=== PATIENT | female | born 1980 | race Caucasian/White ===

== ENCOUNTER 2018-09-30 08:55 | Outpatient (CLI) | payer MEDICAID, SELFPAY ==
[2018-09-30 11:21] LABS: Abs Immature Grans 0.01 k/cumm (0.0-0.09); Absolute Basophil Count 0.01 k/cumm (0.0-0.2); Absolute Eosinophil Count 0.02 k/cumm (0.0-0.7); Absolute Lymphocyte Count 1.17 k/cumm (1.2-3.4); Absolute Monocyte Count 0.59 k/cumm (0.11-0.7); Absolute Neutrophil Count 6.68 k/cumm (1.2-6.7); Basophils % 0.1; Eosinophils % 0.2; HCT 47.1 % (36.0-46.0); HGB 15.9 g/dL (12.0-15.5); Immature Grans % 0.1; Lymphocytes % 13.8; Mean Corp. HGB Concentration 33.8 g/dL (32.0-36.0); Mean Corpuscular Hemoglobin 30.7 pg (27.0-33.0); Mean Corpuscular Volume 90.9 fL (80-95); Mean Platelet Volume 9.4 fL (8.0-11.0); Neutrophils % 78.8; Platelet Count 250 x1000/uL (130-400); RBC 5.18 m/cumm (4.00-5.20); RBC Distribution Width 13.1 % (11.7-14.6); White Blood Cell Count 8.48 k/cumm (4.4-10.8)
[2018-09-30 11:42] LABS: ALT 38 U/L (12-78); AST 18 U/L (15-37); Albumin 4.1 g/dL (3.4-5.0); Alkaline Phosphatase 46 U/L (46-116); Anion Gap 8.9 mmol/L (3-11); BUN 7 mg/dL (7-18); Bilirubin, Total 0.5 mg/dL (0.2-1.0); CO2 28.1 mmol/L (21.0-32.0); Calcium 8.9 mg/dL (8.5-10.1); Chloride 102 mmol/L (98-107); Glucose 79 mg/dL (70-100); Sodium 139 mmol/L (136-145); TSH 1.65 uIU/mL (0.358-3.74); Total Protein 6.9 g/dL (6.4-8.2)
[2018-09-30 12:22] LABS: Vitamin B12 446 pg/mL (193-986)
== END 2018-09-30 09:15 ==
PROVIDERS: PCP Family Medicine; Visit Provider Family Medicine
DX: R53.82 Chronic fatigue, unspecified (principal); K58.0 Irritable bowel syndrome with diarrhea; R10.30 Lower abdominal pain, unspecified
CPT/HCPCS: 36415; 80053; 82607; 84443; 85025

== ENCOUNTER 2019-03-16 10:23 | Outpatient (CLI) | payer MEDICAID, SELFPAY ==
--- NOTE | 2019-03-16 10:19 | DI.RAD_ITS ---
SYMPTOMS/DIAGNOSIS: RIGHT WRIST PAIN RIGHT WRIST: There is some soft tissue swelling. No bony or joint abnormality is apparent.
== END 2019-03-16 10:43 ==
PROVIDERS: PCP Family Medicine; Visit Provider Physician Assistant
DX: M25.531 Pain in right wrist (principal); M79.89 Other specified soft tissue disorders
CPT/HCPCS: 73110

== ENCOUNTER 2020-08-14 04:46 | Emergency (ER) | payer MEDICAID, SELFPAY ==
--- NOTE | 2020-08-14 04:45 | DI.RAD_ITS ---
EXAM: XR ANKLE RT COMPLETE CLINICAL HISTORY: pain for 3 days TECHNIQUE: COMPARISON: No exams were available for comparison FINDINGS: Three views were obtained. The ankle mortise appears well maintained. No bony or soft tissue abnorm ality seen. IMPRESSION: RADIATION DOSE DELIVERED: Total DLP
[2020-08-14 04:51] VITALS: BP 143/85; PULSE 94; RESP 16; TEMP 37.2; O2SAT 99
--- NOTE | 2020-08-14 04:59 | W.ED.GENAD ---
Discharge Plan Disposition Patient Disposition: HOME Condition: Stable Discharge Details Clinical Impression: Acute right ankle pain Primary Care Provider: Liam Bell ED Provider: Cla Person Home Meds and New Rx's Prescriptions: New prednisone 20 mg tablet 60 mg PO DAILY 4 Days Qty: 12 RF: 0 Continued fluoxetine 20 mg capsule 20 mg PO DAILY Qty: 90 RF: 4 gabapentin 100 mg capsule 100 mg PO QHS Qty: 30 RF: 2 lorazepam 0.5 mg tablet 0.5 mg PO BID PRN (Reason: anxiety) Qty: 20 RF: 0 cyclobenzaprine 10 mg tablet 10 mg PO TID Qty: 30 RF: 2 Discharge Instructions Additional Instructions: Your xray did not show any concerning findings follow up with your primary care provider or orthopedics if pain continues in a week if you develop fevers, spreading redness or severe worsening pain return to the emergency department Medical Decision Making 39 yo female with hx of ibs who runs frequently comes in with 3 days of right ankle pain along the anterior ankle. Denies falls fevers, chills. She is able to bear weight and has full rom, no swelling, no warmth, no redness. normal sensation. HAs pain with palpation to the anterior right ankle, 2+ pulses and no pain over metatarsals. Denies any known injury. Suspect this could be stress injury vs tendonitis and less likely gout. No findings to suggest septic joint at this time and no effusion on exam. Will xray to eval for fx though unlikely given lack of trauma xray unremkarkable and is walking around without any significant limp and still has normal motor and sensatino. Suspect arthritis vs tendonitis vs stress related from running. Will trial prednisone and advised f/u with pcp or ortho in a week if not improving and return precautions given Differential Diagnosis Differential Diagnosis: gout, tendonitis, bursitis, arthritis, stress injury, sprain Imaging Data Radiologic Study: Attestation: I personally reviewed and interpreted this imaging study as follows: Imaging: X-Ray Radiologist's impression: no acute findings HPI General Mode of arrival: ambulatory. Date/Time Provider Initiated Documentation: 08/14/20 04:47. Limitations to Documentation: no limitations. Information obtained by: patient. History of Present Illness 39 year old F presents to the emergency department with the chief complaint of right ankle pain, described as moderate, Patient started experiencing this day(s) (3) and it has been constant. Rest improves symptom(s), Movement worsens symptoms . Patient did receive the following treatments prior to arrival, none Related Data Home Medications Medication Instructions Recorded Confirmed gabapentin 100 mg capsule 100 mg PO QHS #30 cap 07/06/20 08/14/20 fluoxetine 20 mg capsule 20 mg PO DAILY #90 cap 07/20/20 08/14/20 lorazepam 0.5 mg tablet 0.5 mg PO BID PRN #20 tab 08/01/20 08/14/20 cyclobenzaprine 10 mg tablet 10 mg PO TID #30 tab 08/03/20 08/14/20 prednisone 60 mg PO DAILY 4 Days #12 tab 08/14/20 Previous Rx's Medication Instructions Recorded gabapentin 100 mg capsule 100 mg PO QHS #30 cap 07/06/20 fluoxetine 20 mg capsule 20 mg PO DAILY #90 cap 07/20/20 lorazepam 0.5 mg tablet 0.5 mg PO BID PRN #20 tab 08/01/20 cyclobenzaprine 10 mg tablet 10 mg PO TID #30 tab 08/03/20 prednisone 60 mg PO DAILY 4 Days #12 tab 08/14/20 Allergies Allergy/AdvReac Type Severity Reaction Status Date / Time Penicillins Allergy Severe Anaphylaxis Verified 08/14/20 04:55 Sulfa (Sulfonamide Allergy Intermediate Rash Verified 08/14/20 04:55 Antibiotics) General Stated Complaint: Orthopedic BRONSON: 4 Review of Systems All systems reviewed & are unremarkable except as noted in HPI and below Constitutional Constitutional: Denies chills, Denies fever(s) and Denies weakness Cardiovascular Cardiovascular: Denies chest pain and Denies dyspnea Respiratory Respiratory: Denies cough and Denies dyspnea Gastrointestinal Gastrointestinal: Denies abdominal pain, Denies nausea and Denies vomiting Musculoskeletal Musculoskeletal: Denies joint swelling Neurologic Neurologic: Denies weakness Psychiatric Psychiatric: Denies depression [facility] Medical History (Updated 08/14/20 @ 05:05 by Cal Person MD) Chronic pain syndrome Tapering to zero on opiates Ganglion cyst Right wrist Aspirated: 03/16/19 Surgical History (Updated 05/17/19 @ 08:45 by Juan Dumont MD) Status post tonsillectomy Tonsillectomy 05/18/12; [facility] Social History (Updated 09/29/18 @ 09:27 by Marian Knowles) Smoking/Tobacco Use Status: Current-Occasional Alcohol Intake: never Drug use: Never Substance use type: does not use Kathia/Latter-Day: No preference Special kathia needs: No Do you feel safe at home: Yes Do you feel safe in your relationship?: Yes Exam Const General: no acute distress Orientation: alert HENMT Head: normal to inspection Ears: external ears normal General nose exam: external nose normal Mouth: moist mucous membranes Eyes General: appearance normal, both eyes and all related structures Neck Neck: normal visual inspection Resp Effort & Inspection: normal respiratory effort and able to speak in complete sentences Cardio Rate: regular rate Skin General skin exam: no rashes or lesions noted Neuro General: patient alert and patient oriented x3 Extrem General: normal to inspection, full ROM and capillary refill normal Psych Mental Status: mental status grossly normal Course Vital Signs Vital signs: Vital Signs Temperature 37.2 C 08/14/20 04:51 Pulse 94 H 08/14/20 04:51 Respiratory Rate 16 08/14/20 04:51 Blood Pressure 143/85 H 08/14/20 04:51 Pulse Oximetry 99 08/14/20 04:51 Temperature 37.2 C 08/14/20 04:51 Temperature Source Skin 08/14/20 04:51 Pulse 94 H 08/14/20 04:51 Respiratory Rate 16 08/14/20 04:51 Respiratory Effort Non-Labored 08/14/20 04:51 Blood Pressure 143/85 H 08/14/20 04:51 Blood Pressure Position Sitting 08/14/20 04:51 Pulse Oximetry 99 08/14/20 04:51 Oxygen Delivery Method Room Air 08/14/20 04:51 Oxygen Flow Rate 0 08/14/20 04:51 Pain Level 3 08/14/20 04:51
[2020-08-14] MEDS: Acetaminophen 500 MG TAB 1000 MG PO (05:05)
--- NOTE | 2020-08-14 05:22 | DI.VRAD_ITS ---
PROCEDURE INFORMATION: Exam: XR Right Ankle Exam date and time: 08/14/2020 5:11 AM Age: 39 years old Clinical indication: Right; Patient HX: Ankle pain for 3 days no known trauma TECHNIQUE: Imaging protocol: XR Right ankle. Views: 3 or more views. COMPARISON: CR RIGHT HEEL (OS CALCIS) 07/13/2014 10:01 AM FINDINGS: Bones/joints: Normal. Soft tissues: Normal. IMPRESSION: No acute findings. Dictated and Authenticated by: Sandor Brooks MD. Ordering:JULIA Mccall MD
[2020-08-14 05:27] VITALS: BP 143/85; PULSE 94; RESP 16; TEMP 37.2; O2SAT 99
== END 2020-08-14 05:25 | disposition home or self-care (01) ==
PROVIDERS: Emergency Provider Emergency Medicine; PCP Family Medicine
DX: M25.571 Pain in right ankle and joints of right foot (principal)
CPT/HCPCS: 99283; 73610

== ENCOUNTER 2020-09-04 11:34 | Outpatient (CLI) | payer MEDICAID, SELFPAY ==
[2020-09-06 13:49] LABS: Patient Race White; SARS-CoV-2 RNA Undetected (Undetected); SARS-CoV-2 Specimen Source Nasopharynx
== END 2020-09-04 11:54 ==
PROVIDERS: PCP Family Medicine; Visit Provider Family Medicine
DX: R50.9 Fever, unspecified (principal)
CPT/HCPCS: U0003

== ENCOUNTER 2022-08-22 00:54 | Outpatient (CLI) | payer MEDICAID, SELFPAY ==
--- OUTSIDE RECORDS SUMMARY | 2022-08-22 01:30 | XMS_ITS | Encounter Summary ---
:1980 Author Organization [facility] Address [address] [place] [address] Care Team Providers Name Role Phone Juan Dumont MD Primary Care Provider Unavailable Encounter Details Date Type Department Care Team Description 11/03/2016 Orders Only [facility] Shanita Vance RNdepot agent - [facility] [address] [place] [address] Social History Tobacco Use Types Packs/Day Years Used Date Current Some Day Smoker Smokeless Tobacco: Never Used Alcohol Use Standard Drinks/Week Comments No 0 (1 standard drink = 0.6 oz pure alcoho l) Sex Assigned at Date Recorded Not on file documented as of this encounter Functional Status Functional Status Response Date of Assessment Because of a physical, mental, or emotional condition, No 02/28/2016 does this person have difficulty doing errands alone such as visiting a doctor's office or shopping? Cognitive Status Response Date of Assessment Because of a physical, mental, or emotional condition, No 02/28/2016 does this person have serious difficulty concentrating, remembering, or making decisions? documented as of this encounter Plan of Treatment Not on filedocumented as of this encounter Visit Diagnoses Not on filedocumented in this encounter Care Teams Pipeline Construction Inspector Relationship Specialty Start Date End Date Juan Dumont MD PCP - General 05/17/15 documented as of this encounter
--- OUTSIDE RECORDS SUMMARY | 2022-08-22 01:30 | XMS_ITS | Encounter Summary ---
:1980 Author Organization [facility] Address [address] [place] [address] Care Team Providers Name Role Phone Brian Nolen MD Primary Care Provider Unavailable Encounter Details Date Type Department Care Team Description 09/23/2011 Results Only [facility]- [facility]ISM Victoria Edwards, TREATING ENGINEER HELPER [phone],[place], [place] [address] (Wo rk) Social History Tobacco Use Types Packs/Day Years Used Date Never Assessed Sex Assigned at Date Recorded Not on file documented as of this encounter Plan of Treatment Not on filedocumented as of this encounter Procedures Procedure Name Priority Date/Time Associated Diagnosis Comme nts PAP TEST- RESULT Routine 09/23/2011 0:00 EDT Resu lts for this ONLY procedure are i n the results section. documented in this encounter Results PAP TEST- RESULT ONLY (09/23/2011 0:00 EDT) Pathology Report: CYTOPATHOLOGY REPORT [facility] Reports generated via electronic interface contain kaleb ginal data; however they are lacking the format of the original re port. Caution should be taken when reading/interpreting unfo rmatted reports. Name: ? JAZZY BESS ? Accession #: ? [id number] : ? 1980 (Age: 30) ??F ?Collect Date: ? 08/31 Location: ? [facility] ? Receive Date : ? 09/24/2011 Provider: ?VICTORIA EDWARDS TREATING ENGINEER HELPER Copy to: ? Specimen/Source: ? Pap Test, Cervix/Endocervix, ThinPrep Imaging System with manual evaluation Last Menstrual Period: ? Hormonal/Contraceptive Status: ? Control Pills: mini pill ? SPECIMEN ADEQUACY ? Satisfactory for Evaluation - transformation zone component present GENERAL CATEGORIZATION ? Negative for Intraepithelial Lesion or Malignan cy ? Document reviewed and electronically signed by: ? MARYAM Kahn(ASCP)(IAC) ? Report Date: ??10/03/2011 11:00 End of Report Specimen Performing Organization Address City/State/ZIP Code Phon e Number [facility] [address] [place] [address] SERVICES [facility] [address] [place] [address] documented in this encounter Visit Diagnoses Not on filedocumented in this encounter Care Teams Turbo Operator Relationship Specialty Start Date End Date Brian Nolen MD PCP - General 09/25/1105/16 documented as of this encounter
--- OUTSIDE RECORDS SUMMARY | 2022-08-22 01:30 | XMS_ITS | Encounter Summary ---
:1980 Author Organization [facility] Address [address] [place] [address] Care Team Providers Name Role Phone Juan Dumont MD Primary Care Provider Unavailable Encounter Details Date Type Department Care Team Description 11/03/2016 Orders Only [facility] Shanita Vance Weight lo ss (Primary Gastroenterology - Main RN Dx) [place] [address] [place] [phone] Social History Tobacco Use Types Packs/Day Years [...] making decisions? documented as of this encounter Progress Notes Shanita Vance RN - 11/03/2016 1428 EST Capsule Endoscopy scheduled for 11/26/16. Instructions given to patient over the phone and mailed. documented in this encounter Plan of Treatment Scheduled Orders Name Type Priority Associated Diagnoses Order S chedule CAPSULE ENDOSCOPY GI Routine Weight loss Ordered: 1 01/04/2016 documented as of this encounter Visit Diagnoses Diagnosis Weight loss - Primary Loss of weight documented in this encounter Care Teams Dust Sampler Relationship Specialty Start Date End Date Juan Dumont MD PCP - General 05/17/15 documented as of this encounter
--- OUTSIDE RECORDS SUMMARY | 2022-08-22 01:30 | XMS_ITS | Encounter Summary ---
:1980 Author Organization [facility] Address [address] [place] [address] Care Team Providers Name Role Phone Unavailable Primary Care Provider Unavailable Encounter Details Date Type Department Care Team Description 11/21/2008 Before [facility] - Ale Pop, Converted Visit Maple conversion RESEARCH AFFILIATE (Maple) [address] [place] [address] [address] [phone] [place], [place] [address] (Wo rk) Social History Tobacco Use Types Packs/Day Years Used Date Never Assessed Sex Assigned at Date Recorded Not on file documented as of this encounter Plan of Treatment Not on filedocumented as of this encounter Procedures Procedure Name Priority Date/Time Associated Diagnosis Comme [facility] CYTOPATHOLOGY Routine 11/21/2008 0:00 EST Results for this procedure are i n the results section . documented in this encounter Results CYTOPATHOLOGY (11/21/2008 0:00 EST) Pathology Report: CYTOPATHOLOGY REPORT ? [facility] Reports generated via electr onic interface contain original data; ? however they are lacking the format of the original report. ? Caution should be taken when reading/interpreting unformatted reports. ? Name: ? SHANTEL BARBOSA ? Accession #: ? [id number] ? : ? 1980 (Age: 28) ??F ?Collect Date: ? 11/21/2008 ? Location: ? [facility] ? Receive Date: ? 11/24/2008 ? Provider: ?ALE NUNO ? Copy to: ? Specimen/Source: ? Pap Test, Cervix/Endocervix, ThinPrep Imaging System ? with manual evaluation ? Last Menstrual Period: ? 09/30/08 ? Menstrual/ Status: ? Previous Gynecologic Patholo gy: ? HPV: Pt has hx HR HPV + ? Treatment History: ? LEEP: Procedure 05/07 ? Other: ? HPVA - HPV testing requested if ASC-US on the current ThinPrep Pap test. ? SPECIMEN ADEQUACY ? Satisfactory for Eval uation ? - transformation zone compon ent present ? GENERAL CATEGORIZATION ? Negative for Intraepi thelial Lesion or Malignancy ? Document reviewed and electr onically signed by: ? Jesús Almitaler, CT( CP) ? Report Date: ??12/31/ 2008 11:38 ? End of Report ? Specimen Performing Organization Address City/State/ZIP Code Phon e Number [facility] [address] [place] [address] SERVICES [facility] [address] [place] [address] documented in this encounter Visit Diagnoses Not on filedocumented in this encounter
--- OUTSIDE RECORDS SUMMARY | 2022-08-22 01:30 | XMS_ITS | Clinical Summary ---
:1980 Author Organization [facility] Address [address] [place] [address] Care Team Providers Name Role Phone Juan Dumont MD Primary Care Provider Unavailable Allergies Active Allergy Reactions Severity Noted Date Comments Penicillins Anaphylaxis High 02/28/2016 Sulfa (Sulfonamide Antibiotics) 6 Medications Medication Sig Dispensed Refills Start Date End Date Status oxyCODONE (ROXICODONE) Take 5 mg by mouth 0 Active 5 mg immediate release as needed for tablet Pain. polyethylene glycol Follow 1 Bottle 0 08/29/2016 Active (GOLYTELY) instructions on 236-22.74-6.74 -5.86 'colonoscopy gram suspension preparation instructions' sheet. levonorgestrel 1 Each by 0 Activ e (MIRENA) 20 mcg/24 hr intrauterine route (5 years) IUD once. cyclobenzaprine Take 10 mg by 0 Active (FLEXERIL) 10 mg mouth 3 times tablet daily. Active Problems No known active problems Surgical History Surgery Date Site/Laterality Comments BREAST LUMPECTOMY TONSILLECTOMY Medical History Medical History Date Comments Diarrhea Environmental allergies Heart murmur Kidney stones Colon polyp Family History Medical History Relation Name Comments Cancer Father High Blood Pressure Father Cancer Maternal Aunt High Blood Pressure Maternal Aunt Cancer Maternal Grandfather Cancer Maternal Grandmother High Blood Pressure Mother Cancer Paternal Aunt High Blood Pressure Paternal Aunt Cancer Paternal Grandfather Cancer Paternal Grandmother High Blood Pressure Paternal Grandmother Relation Name Status Comments Father Alive Maternal Aunt Maternal Grandfather Maternal Grandmother Mother Alive Paternal Aunt Paternal Grandfather Paternal Grandmother Social History Tobacco Use Types Packs/Day Years Used Date Current Some Day Smoker Smokeless Tobacco: Never Used Alcohol Use Standard Drinks/Week Comments No 0 (1 standard drink = 0.6 oz pure alcoho l) Sex Assigned at Date Recorded Not on file Last Filed Vital Signs Vital Sign Reading Time Taken Comments Blood Pressure 114/76 09/08/2016 1521 EDT Pulse 84 02/28/2016 1118 EDT Temperature 36.7 ??C (98.1 ??F) 09/08/2016 1335 EDT Respiratory Rate 22 09/08/2016 1500 EDT Oxygen Saturation 100% 09/08/2016 1521 EDT Inhaled Oxygen Concentration - - Weight 47.6 kg (105 lb) 09/08/2016 1336 EDT Height 154.9 cm (5' 1) 09/08/2016 1336 EDT Body Mass Index 19.84 09/08/2016 1336 EDT Plan of Treatment Health Maintenance Due Date Last Done Comments Pneumococcal Immunization (1 of 2 - PPSV23) 1986 Insurance Payer Benefit Plan Subscriber ID Effective Phone Address Typ e / Group Dates MEDICAID ACO MEDICAID ACO [id number] 2020-Pres [phone] [address] Medicaid [place] [address] [facility] [id number] Care Teams Mold Shifter Relationship Specialty Start Date End Date Juan Dumont MD PCP - General 05/17/15
--- OUTSIDE RECORDS SUMMARY | 2022-08-22 01:30 | XMS_ITS | Encounter Summary ---
:1980 Author Organization [facility] Address [address] [place] [address] Care Team Providers Name Role Phone Unavailable Primary Care Provider Unavailable Encounter Details Date Type Department Care Team Description 12/15/2003 Results Only [facility] Vale Tanner [address] [place] [phone] Social History Tobacco Use Types Packs/Day Years Used Date Never Assessed Sex Assigned at Date Recorded Not on file documented as of this encounter Plan of Treatment Not on filedocumented as of this encounter Procedures Procedure Name Priority Date/Time Associated Diagnosis Comme nts GROUP A STREP Routine 12/15/2003 10:18 Results fo r this CULTURE EST procedure are i n the results section. documented in this encounter Results PHARYNGITIS CULTURE (12/15/2003 10:18 EST) Specimen Throat [facility] Result NO GROUP A BETA [facility] Report Status Final [id number] [facility] Specimen Performing Organization Address City/State/ZIP Code Phon e Number [facility] [address] [place] [address] SERVICES [facility] [address] [place] [address] documented in this encounter Visit Diagnoses Not on filedocumented in this encounter
--- OUTSIDE RECORDS SUMMARY | 2022-08-22 01:30 | XMS_ITS | Encounter Summary ---
:1980 Author Organization [facility] Address [address] [place] [address] Care Team Providers Name Role Phone Brian Nolen MD Primary Care Provider Unavailable Encounter Details Date Type Department Care Team Description 05/15/2015 Hospital Encounter [facility]- Sarah Unknown, Provider, [facility] [address] [facility] [phone] [place] [address] (Work) [phone] Social History Tobacco Use Types Packs/Day Years Used Date Never Assessed Sex Assigned at Date Recorded Not on file documented as of this encounter Discharge Disposition Disposition Code Departure Means Destination Home or Self [place] documented in this encounter Plan of Treatment Not on filedocumented as of this encounter Visit Diagnoses Not on filedocumented in this encounter Care Teams Robot Operator Relationship Specialty Start Date End Date Brian Nolen MD PCP - General 09/25/1105/16 documented as of this encounter
--- OUTSIDE RECORDS SUMMARY | 2022-08-22 01:30 | XMS_ITS | Encounter Summary ---
:1980 Author Organization [facility] Address [address] [place] [address] Care Team Providers Name Role Phone Juan Dumont MD Primary Care Provider Unavailable Reason for Referral Consult, Test and Treat (Routine) - Closed Specialty Diagnoses / Referred By Contact Referred To Contact Procedures Gastroenterology and Diagnoses Diarrhea Weight loss Generalized abdominal pain Jenny Alvarado, Hepatology Procedures COLONOSCOPY MD Layo Vasques MD [address] [place] [address], [facility], jesica Escobedo[address] [phone] Fax: Referral ID Status Reason Start Date Expiration Date Visits Requ ested Visits Authorized [id number] Closed 02/28/2016 1 1 Encounter Details Date Type Department Care Team Description 02/28/2016 Orders Only [facility] Neldantrukhsana, Diarrhea (Primary Dx); Gastroenterology - [facility] MD Layo Weight loss; [address] Generalized abdominal pain [address] [phone] [facility] [address] [place] [address] Social History Tobacco Use Types Packs/Day Years Used Date Current Some Day Smoker Alcohol Use Standard Drinks/Week Comments No 0 [...] Name Priority Date/Time Associated Diagnosis Comme nts COLONOSCOPY PROCEDURE Routine 09/08/2016 Diarrhea Results for this Weight loss procedure are in the Generalized abdominal result s section. pain documented in this encounter Results COLONOSCOPY (09/08/2016) Colonoscopy Comment: Follow-up [facility] on the results of the biopsy specimens Colonoscopy, [facility] External Specimen Performing Organization Address City/State/ZIP Code Phon e Number [facility] documented in this encounter Visit Diagnoses Diagnosis Diarrhea - Primary Weight loss Loss of weight Generalized abdominal pain Abdominal pain, generalized documented in this encounter Care Teams Assistant Producer Relationship Specialty Start Date End Date Juan Dumont MD PCP - General 05/17/15 documented as of this encounter
--- OUTSIDE RECORDS SUMMARY | 2022-08-22 01:30 | XMS_ITS | Encounter Summary ---
:1980 Author Organization [facility] Address [address] [place] [address] Care Team Providers Name Role Phone Juan Dumont MD Primary Care Provider Unavailable Reason for Visit Reason Onset Date Comments Results 01/09/2017 Encounter Details Date Type Department Care Team Description 01/09/2017 Telephone [facility] Gastroenterology Shanita Vance RN Results - [address] [address] Social History Tobacco Use Types Packs/Day Years [...] making decisions? documented as of this encounter Miscellaneous Notes Telephone Encounter - Shanita Vance RN - 01/09/2017 1235 EST Attempted to reach patient on 01/07/17 and 01/08/17. Left a detailed message for patient that the capsule endoscopy done on 12/31/16 is normal. She was asked to follow up with her mica inspector. Our officenumber was provided for further questions. documented in this encounter Plan of Treatment Not on filedocumented as of this encounter Visit Diagnoses Not on filedocumented in this encounter Care Teams Project Management Analyst Relationship Specialty Start Date End Date Juan Dumont MD PCP - General 05/17/15 documented as of this encounter
--- OUTSIDE RECORDS SUMMARY | 2022-08-22 01:30 | XMS_ITS | Encounter Summary ---
:1980 Author Organization [facility] Address [address] [place] [address] Care Team Providers Name Role Phone Juan Dumont MD Primary Care Provider Unavailable Encounter Details Date Type Department Care Team Description 08/29/2016 Orders Only [facility] Ferrentino, Diarrhea (Primary Dx); Gastroenterology - [facility] MD Layo Loss of weight; [address] Abdominal pain, generalized [address] [place] [address] [facility] [phone] [address], [address] [place] [address] Social History Tobacco Use Types [...] making decisions? documented as of this encounter Ordered Prescriptions Prescription Sig Dispensed Refills Start Date End Date polyethylene glycol Follow instructions on 1 Bottle 0 08/02 (ALONSO) 'colonoscopy [id number] -5.86 preparation gram suspension instructions' sheet. documented in this encounter Plan of Treatment Not on filedocumented as of this encounter Visit Diagnoses Diagnosis Diarrhea - Primary Loss of weight Abdominal pain, generalized documented in this encounter Care Teams Garden Labourer Relationship Specialty Start Date End Date Juan Dumont MD PCP - General 05/17/15 documented as of this encounter
--- OUTSIDE RECORDS SUMMARY | 2022-08-22 01:30 | XMS_ITS | Encounter Summary ---
:1980 Author Organization [facility] Address [address] [place] [address] Care Team Providers Name Role Phone Bambi Agrawal MD Primary Care Provider Unavailable Reason for Visit Reason Onset Date Comments Biopsy Results 09/18/2016 Encounter Details Date Type Department Care Team Description 09/18/2016 Telephone [facility] Layo Cerna, Biopsy Results Gastroenterology - [address] [address] [address], [place] [id number] (Wo rk) Social History Tobacco Use Types [...] this encounter Miscellaneous Notes Telephone Encounter - Layo Cerna MD - 09/18/2016 1143 EDT I spoke with Jazzy regarding the results of her colonoscopy and biopsies as well as upper endoscopyand biopsies as part of her evaluation for ongoing issues of diarrhea and weight loss (please see original consult note for details end). Endoscopically both the colon, small bowel as well as the upperGI tract were all noted to be normal. Biopsies taken throughout were also noted to be normal withoutany pathologic findings. These results were conveyed to her in detail. Impression: Patient with long-standing history of diarrhea and weight loss (please see original consult note) with colonoscopy and upper endoscopy performed by me on September 08 as part of an evaluationrevealing endoscopically normal bowel in addition to normal microscopic sampling throughout. At this point it still remains unclear to me that she actually has an intrinsic GI issue. We talked about the possibility of capsule endoscopy as the final point of evaluation to look for evidence of occult inflammatory change that might be responsible for her symptomatology. I described in detail howthis would be performed. I did mention that it will likely be low yield but not impossible to uncover occult inflammatory change. As such she is interested in pursuing this at this time. Certainly if this were to be unremarkable, which statistically it is likely to be, I think her workup should be redirected looking for a systemic issue that is responsible for her symptoms and not one that is intrinsic to the GI tract itself. Plan: 1. We we will proceed with capsule endoscopy. 2. If the exam is convincing for evidence of inflammatory change, then we will continue the workup to further elucidate the cause. 3. On the other hand, should that exam be unremarkable, then I would recommend that her workup be redirected for systemic issues responsible for her symptomatology as the GI tract will have been ruled out as the underlying issue. This was all discussed in detail with the patient who is in agreement. SURGICAL PATHOLOGY REPORT Reports generated via electronic interface contain original data; however they are lacking the format of the original report. Caution should be taken when reading/interpreting unformatted reports. Name: ? JAZZY BESS ? Accession #: ? [id number] ? : ? 1980 (Age: 35) ??F ?Collect Date: ? 09/08/2016 ? Location: ? ENDO ? Receive Date: ? 09/08/2016 ? Provider: LAYO CERNA MD Copy to: BAMBI AGRAWAL MD ? Final Pathologic Diagnosis: A. COLON, RIGHT, BIOPSY: - Colonic mucosa with no specific pathologic features. B. COLON, LEFT, BIOPSY: - Colonic mucosa with no specific pathologic features. C. RECTUM, BIOPSY: - Rectal mucosa with no specific pathologic features. D. SMALL INTESTINE, DUODENUM, BIOPSY: - ??Duodenal mucosa with no specific pathologic features. Document reviewed and electronically signed by: GERRI TRAN MD Report ??Date: 09/10/2016 16:07 By the signature above, the attending physician certifies that he/she has personally conducted a gross and/or microscopic examination of the described specimens and rendered or confirmed the above diagnosis. Specimen(s) Received: A. ??Right colon B. ??Left colon C. ??Rectum D. ??Duodenum Clinical History: Patient seen in clinic with abdominal pain, diarrhea and weight loss; normal colon, TI and EGD ?? Gross Description: A. ?Received in formalin labelled with proper patient identification (initials B, A) and right colon are four pink-smith tissues (0.3 x 0.2 x 0.1 cm to 0.4 x 0.3 x 0.2 cm). Entirely submitted in A1 and A2. B. ?Received in formalin labelled with proper patient identification (initials B, A) and left colon are three pink-smith tissues (0.3 x 0.2 x 0.1 cm, 0.4 x 0.2 x 0.1 cm and 0.6 x 0.8 x 0.2 cm). Entirely submitted in B1. C. ?Received in formalin??labelled with proper patient identification (initials B, A) and rectum are three pink-smith tissues (0.2 x 0.2 x 0.1 cm, 0.3 x 0.2 x 0.1 cm and 0.6 x 0.4 x 0.2 cm). Entirely submitted in C1. D. ?Received in formalin labelled with proper patient identification (initials B, A) and duodenum are six pink-smith tissues (0.2 x 0.1 x 0.1 cm to 0.6 x 0.3 x 0.2 cm). Entirely submitted in D1 and D2. RONALDO Patricio ([facility]) 09/08/2016 5:11 PM ?? documented in this encounter Plan of Treatment Not on filedocumented as of this encounter Visit Diagnoses Not on filedocumented in this encounter Care Teams Contour Grinder Relationship Specialty Start Date End Date Bambi Agrawal MD PCP - General 05/17/15 documented as of this encounter
--- OUTSIDE RECORDS SUMMARY | 2022-08-22 01:30 | XMS_ITS | Encounter Summary ---
:1980 Author Organization [facility] Address [address] [place] [address] Care Team Providers Name Role Phone Brian Nolen MD Primary Care Provider Unavailable Juan Dumont MD Primary Care Provider Unavailable Encounter Details Date Type Department Care Team Description 10/26/2001 Hospital Encounter [facility] - Shari Funez MD [address] [place] [address] [place] [phone] Other Unknown, Provider, [address] [place] [address] Social History Tobacco Use Types Packs/Day [...] Name Priority Date/Time Associated Diagnosis Comme nts HEMAGRAM & DIFF Routine 10/26/2001 15:04 EST Resu lts for this procedure are i n the results section. documented in this encounter Results HEMAGRAM & DIFF (10/26/2001 15:04 EST) Pathologist [facility] nature WBC 7.93 4.0 - 12.4 K/cmm [facility] RBC 4.24 3.86 - 5.04 M/cmm [facility] Hemoglobin 13.1 11.6 - 15.2 gm/dl [facility] HCT 38.5 34.9 - 44.4 % [facility] MCV 91 81 - 98 fl [facility] MCH 30.8 26.7 - 33.3 pg [facility] MCHC 33.9 32.1 - 35.9 gm/dl [facility] PLT 252 141 - 320 K/cmm [facility] RDW-CV 12.2 11.7 - 14.6 % [facility] Neutrophils 72.5 45.5 - 79.7 % [facility] Lymphocytes 18.2 15.0 - 46.8 % [facility] Monocytes 8.1 1.8 - 12.0 % [facility] Eosinophils 1.0 0.6 - 6.9 % [facility] Basophils 0.2 0.2 - 1.4 % [facility] ABS Neutrophils 5.76 2.20 - 8.85 K/cmm [facility] ABS Lymphs 1.44 1.09 - 3.30 K/cmm [facility] ABS Monocytes 0.64 0.1 - 0.8 K/cmm [facility] ABS Eosinophils 0.08 0.03 - 0.61 K/cmm [facility] ABS Basophils 0.01 0.01 - 0.11 K/cmm [facility] Type of Diff: Automated [facility] Specimen Performing Organization Address City/State/ZIP Code Phon e Number [facility] [address] [place] [address] SERVICES [facility] [address] [place] [address] documented in this encounter Visit Diagnoses Not on filedocumented in this encounter Care Teams Desk Director Relationship Specialty Start Date End Date Brian Nolen MD PCP - General 09/25/1105/16 Juan Dumont MD PCP - General 05/17/15 documented as of this encounter
--- OUTSIDE RECORDS SUMMARY | 2022-08-22 01:30 | XMS_ITS | Clinical Summary ---
:1980 Author Organization [facility] [place] [address] Care Team Providers Name Role Phone Juan Dumont MD Primary Care Provider Allergies Active Allergy Reactions Severity Noted Date Comments Chocolate Flavor CIS - Hives Penicillins CIS - stops erika athing Sulfa (Sulfonamide Antibiotics) CIS - stop breathing Medications Medication Sig Dispensed Refills Start Date End Date Status oxyCODONE-acetaminoph every 6 hours as 0 08/28/2015 Active en (PERCOCET) 5-325 needed. mg Tablet levonorgestrel 1 each by 0 Activ e (MIRENA) 20 mcg/24 hr Intrauterine route (5 years) IUD once. Active Problems No known active problems Immunizations Name Administration Dates Next Due Influenza Vaccine w/Preservative, Split 08/30/2014 Social History Tobacco Use Types Packs/Day Years Used Date Current Every Day Smoker Sex Assigned at Date Recorded Not on file Last Filed Vital Signs Vital Sign Reading Time Taken Comments Blood Pressure 133/80 09/17/2015 10:34 AM EDT Pulse 91 09/17/2015 10:34 AM EDT Temperature 36.5 ??C (97.7 ??F) 09/17/2015 10:34 AM EDT Respiratory Rate - - Oxygen Saturation 100% 09/17/2015 10:34 AM EDT Inhaled Oxygen Concentration - - Weight 50.3 kg (111 lb) 09/17/2015 10:34 AM EDT Height 154.9 cm (5' 1) 09/17/2015 10:34 AM EDT Body Mass Index 20.97 09/17/2015 10:34 AM EDT Plan of Treatment Health Maintenance Due Date Last Done Comments Covid-19 Vaccine (#1) 1985 HIV screen 1998 Hepatitis C Screening 1998 Tdap adult 1999 Tetanus vaccine 1999 HPV test 2010 PAP Smear 2010 Breast Cancer Share Decision Needed 2020 Influenza (Flu) vaccine (1 of - Influenza standard 07/31/2022 08/30/2014 series) Insurance Payer Benefit Plan / Subscriber ID Effective Dates Phone Addre ss Type Group [place] [id number] 2015-Pres [phone] [address] [place] [address] (Work) [phone] Care Teams Physical Meteorologist Relationship Specialty Start Date End Date Juan Dumont MD PCP - General Family Medicine 09/17/[address] [place], [place] [address]
--- OUTSIDE RECORDS SUMMARY | 2022-08-22 01:30 | XMS_ITS | Encounter Summary ---
:1980 Author Organization Address [address] [place] [address] Care Team Providers Name Role Phone Brian Nolen MD Primary Care Provider Unavailable Encounter Details Date Type Department Care Team Description 05/15/2015 Results Only [facility] Rolf Thompson MD [phone] [address] [facility] [address] [place] [address] (Wo rk) Social History Tobacco Use Types Packs/Day Years Used Date Never Assessed Sex Assigned at Date Recorded Not on file documented as of this encounter Plan of Treatment Not on filedocumented as of this encounter Procedures Procedure Name Priority Date/Time Associated Diagnosis Comme [facility] SURGICAL PATHOLOGY Routine 05/15/2015 20:08 Resul ts for this EDT procedure are i n the results section. documented in this encounter Results SURGICAL PATHOLOGY (05/15/2015 20:08 EDT) Pathology Report: SURGICAL PATHOLOGY REPORT [facility] Reports generated via electronic interface conta in original data; [facility] however they are lacking the format of the original re port. SERVICES Caution should be taken when reading/interpreting unfo rmatted reports. Name: ? JAZZY BESS ? Accession #: ? [id number] ? : ? 1980 (Age: [age]) ??F ? Collect Date: ? 05/15/2015 ? Location: ? [facility] ? Receive Date: ? 5 ? Provider: DONNELL THOMPSON MD Copy to: BAMBI AGRAWAL MD ? Final Pathologic Diagnosis: A. SMALL INTESTINE, 2ND PORTION OF DUODENUM, BIOPSY: - ??Duodenal mucosa with mild patchy intraepithelial l ymphocytosis. - ??See comment. B. STOMACH, ANTRUM AND BODY, BIOPSY: - ??Gastric body mucosa with no specific pathologic fe atures. C. GASTROESOPHAGEAL JUNCTION, BIOPSY: - ??Squamocolumnar junctional mucosa with reflux esoph agitis. - ??Negative for intestinal metaplasia; Negative for d ysplasia. D. COLON, SIGMOID, BIOPSY: - Colonic mucosa with no specific pathologic features. Document reviewed and electronically signed by: GERRI TRAN MD Report ??Date: 05/21/2015 10:39 By the signature above, the attending physician certif ies that he/she has personally conducted a gross and/or microscopic examin ation of the described specimens and rendered or confirmed the above diagnosi s. Specimen(s) Received: A. ??2nd portion of duodenum B. ??Antrum and body C. ??EGJ D. ??Sigmoid colon bx Clinical History: Diarrhea, hx microscopic colitis; clinical diagnosis c ode: ??578.1 Gross Description: A. ?Received in formalin labelled with proper p atient identification (initials B, A) and 2nd portion of duodenum ar e two pink-smith tissues (0.2 x 0.2 x 0.2 cm and 0.3 x 0.3 x 0.2 cm). Entirely submitt ed in A1. B. ?Received in formalin labelled with proper p atient identification (initials B, A) and antrum and body are two pink-smith tissues (0.2 x 0.2 x 0.1 cm and 0.7 x 0.2 x 0.1 cm). Entirely submitted in B1. C. ?Received in formalin labelled with proper p atient identification (initials B, A) and EGJ ar e three smith-white tissues (0.1 x 0.1 x 0.1 cm to 0.3 x 0.1 x 0.1 cm). Entirely submitted in C1. D. ?Received in formalin labelled with proper p atient identification (initials B, A) and sigmoid colon bx is a single pink-smith tissue fragment (0.6 x 0.2 x 0.1 cm). Submitted intact in D1. Vidhya Chapman 05/17/2015 09:33 AM End of Report Specimen Performing Organization Address City/State/ZIP Code Phon e Number [facility] [address] [place], [place] [id number] SERVICES documented in this encounter Visit Diagnoses Not on filedocumented in this encounter Care Teams Imaging Center Manager Relationship Specialty Start Date End Date Brian Nolen MD PCP - General 09/25/1105/16 documented as of this encounter
--- OUTSIDE RECORDS SUMMARY | 2022-08-22 01:30 | XMS_ITS | Encounter Summary ---
:1980 Author Organization [facility] Address [address] [place] [address] Care Team Providers Name Role Phone Bambi Agrawal MD Primary Care Provider Unavailable Reason for Visit Reason Comments New Patient Visit abd pain and weight loss - p t describes it as the early stages of labor (onset), cognitive rodríguez nges - pcp wants a camera pill, [facility] is concerned about whipples disease? Consult (Routine) - Closed Specialty Diagnoses / Referred By Referred To Cont act Procedures Contact Gastroenterology and Diagnoses Abdominal pain Weight loss Bambi Agrawal MD [place], Hepatology [address] [facility] [address] Layo MD [place], [place] [address] [address] Phone: Fax: Referral ID Status Reason Start Date Expiration Date Visits Requ ested Visits Authorized [id number] Closed 1 1 Encounter Details Date Type Department Care Team Description 02/28/2016 Office Visit [facility] Jenny, Diarrhea (Primary Dx); Gastroenterology - Abhishek Vasques MD Generalized abdominal pain; [place] [address] [place] Weight loss [address] [phone] [place] [phone] Social History Tobacco Use Types Packs/Day Years Used Date Current Some Day Smoker Alcohol Use Standard Drinks/Week Comments No 0 (1 standard drink = 0.6 oz pure alcoho l) Sex Assigned at Date Recorded Not on file documented as of this encounter Last Filed Vital Signs Vital Sign Reading Time Taken Comments Blood Pressure 122/82 02/28/2016 1118 EDT Pulse 84 02/28/2016 1118 EDT Temperature - - Respiratory Rate - - Oxygen Saturation - - Inhaled Oxygen Concentration - - Weight 50.3 kg (111 lb) 02/28/2016 1118 EDT Height 154.9 cm (5' 1) 02/28/2016 1118 EDT Body Mass Index 20.97 02/28/2016 1118 EDT documented in this encounter Functional Status Functional Status Response [...] making decisions? documented as of this encounter Discharge Diagnoses Diagnosis R19.7 Diarrhea, unspecified-R19.7[ICD-10 -CM] R10.84 Generalized abdominal pain-R10.84 [ICD-10-CM] R63.4 Abnormal weight loss-R63.4[ICD-10- CM] documented in this encounter Discharge Disposition Disposition Code Departure Means Destination Auto Discharge documented in this encounter Progress Notes Layo Alvarado MD - 02/28/2016 1215 EDT Subjective: Patient ID: Jazzy Bess is an 35 y.o. female. Chief Complaint Patient presents with ??? New Patient Visit abd pain and weight loss - pt describes it as the early stages of labor (onset), cognitive changes - pcp wants a camera pill, [facility] is concerned about whipples disease? HPI Jazzy is a pleasant 35-year-old woman who I am seeing in consultation at the request of Dr. Bambi Agrawal for further evaluation of crampy abdominal pain associated with diarrhea and weight loss. The patient states that she has had these symptoms ongoing now for the last several years. She describes crampy abdominal pain occurring on a daily basis associated with loose to watery bowel movements typically up to 10-12 per day. In addition she will often get nocturnal symptoms as well. At times she may see blood but that Sonata was been consistent. More recently she has had some nausea with associated vomiting but that also has not been a routine part of her symptomatology. It has got to the point now where she does not really have much appetite in finds that she just does not eat as much as she used to. She reports significant amount of weight loss over the last several years associated with this, some 70 lbs. back in 2012 she did see a physician at [facility] at which time she underwent a colonoscopy. According to the patient the the colonoscopy was unremarkable but biopsies revealed evidence of microscopic colitis. However there is no record of any therapy for this. She has since seen a rn first assist last summer, Dr. Thompson, at [facility] at which time she underwent both an upper and lower endoscopy. Both were reported to be normal endoscopically. Biopsies taken from the colon were reportedly unremarkable. Biopsies taken from the duodenum revealedsome patchy intraepithelial lymphocytosis but no other significant abnormality. Biopsies from the stomach were generally unremarkable. She apparently has undergone a small bowel follow-through as well which was also reportedly unremarkable. Subsequent to that she began to develop diffuse arthritis andarthralgias and has since seen a powder guard at [facility]. However no definitive diagnosis has been made. They raise the possibility of Whipple's disease and suggested that she be seen by GI at [facility] however they are next available appointment was not until May and as such she was subsequently referred here. Apparently she has had multiple labwork done all of which have been unremarkable. Unfortunately we do not have any of those records. She currently reports a loss of appetite as well as smell. She also states that her has noticedthat her cognitive function has been somewhat scattered at times. There is no problem list on file for this patient. Past Medical History Diagnosis Date ??? Diarrhea ??? Environmental allergies ??? Heart murmur ??? Kidney stones Past Surgical History Procedure Laterality Date ??? Breast lumpectomy ??? Tonsillectomy Family History Problem Relation Age of Onset ??? High Blood Pressure Mother ??? High Blood Pressure Father ??? Cancer Father ??? High Blood Pressure Maternal Aunt ??? Cancer Maternal Aunt ??? Cancer Paternal Aunt ??? High Blood Pressure Paternal Aunt ??? Cancer Maternal Grandmother ??? Cancer Maternal Grandfather ??? Cancer Paternal Grandmother ??? High Blood Pressure Paternal Grandmother ??? Cancer Paternal Grandfather Social History Substance Use Topics ??? Smoking status: Current Some Day Smoker ??? Smokeless tobacco: Not on file ??? Alcohol Use: No She is a graduate of [employer] and subsequently went to law school but became disillusioned with law and ended up buying property in [place] and is currently an Inn garbage person. She has 3 small children and is (husbands name is Sal) No current outpatient prescriptions on file prior to visit. No current facility-administered medications on file prior to visit. Allergies Allergen Reactions ??? Penicillins ??? Sulfa (Sulfonamide Antibiotics) ROS - See HPI A 10-point review of systems was noted to be negative or unremarkable and is otherwise stated in thehistory of present illness. Objective: BP 122/82 mmHg Pulse 84 Ht 154.9 cm (61) Wt 50.349 kg (111 lb) BMI 20.98 kg/m2 Physical Exam On physical exam, the patient is generally well-appearing, quite thin and petite and in no acute distress; alert and oriented. Weight and vitals are as noted above. HEENT exam was unremarkable. There was no scleral icterus. Neck was supple without any palpable lymphadenopathy or thyromegaly. Heart was regular rate and rhythm without any murmurs, rubs or gallops. Lungs are clear to auscultation bilaterally. Abdomen was soft, nondistended. Bowel sounds were positive. She had mild tenderness to palpation diffusely but no guarding or rebound and no consistency to the tenderness either. There were no masses appreciated or other abnormalities; no hepatosplenomegaly. No significant inguinal adenopathy. Extremities were negative for pitting edema bilaterally. Assessment: Patient with long-standing history of chronic abdominal pain associated with diarrhea and weight loss as noted above. Historically her workup has been non- diagnostic although her first colonoscopy reportedly revealed evidence of microscopic colitis, the clinical significance of which is unclear. At this point its unclear if her issues are related directly to an intrinsic disease process of her GI tract or if there is a systemic issue here and the GI tract is only secondarily involved. Either way we talked about proceeding from a fresh perspective and particularly evaluating her from the standpoint of determining whether or not there is in fact an intrinsic abnormality primarily involving herGI tract, such as some form of an inflammatory bowel disease. This would involve proceeding with both upper and lower endoscopy with extensive mucosal biopsying as I believe histologic evaluation is imperative in her overall assessment. She is completely agreeable with this approach. Plan: 1. Will obtain blood work results from previous testing from her primary care physician. 2. We will set her up for a colonoscopy and upper endoscopy with mucosal biopsies to be performed with anesthesiology. Since she is going on vacation today for the next couple of weeks she will contactus when she gets back to schedule these. 3. If that workup is nondiagnostic, then will consider proceeding with further evaluation of the small bowel either with CT enterography versus capsule endoscopy. This was all discussed in detail with the patient who is in agreement. (R19.7) Diarrhea (primary encounter diagnosis) (R10.84) Generalized abdominal pain (R63.4) Weight loss Layo Alvarado MD Med Orders Placed This Visit and Additions to the Medication List Medications ??? oxyCODONE (ROXICODONE) 5 mg immediate release tablet Sig: Take 5 mg by mouth as needed for Pain. ADDENDUM: Her previous colonoscopy and EGD performed in [address] 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 At the time her serologies for celiac disease were negative. In addition she had had a C-reactive protein and erythrocyte sedimentation rate checked both of which were normal. We will proceed with repeat upper endoscopy and colonoscopy with biopsies as planned. SURGICAL PATHOLOGY REPORT Reports generated via electronic interface contain original data; however they are lacking the format of the original report. Caution should be taken when reading/interpreting unformatted reports. Name: ? JAZZY BESS ? Accession #: ? [id number] ? : ? 1980 (Age: 32) ??F ? Collect Date: ? 06/07/2013 ? Location: ? [facility] ? Receive Date: ? 06/08/2013 ? Provider: KHLOE MEJÍA DO Copy to: BAMBI AGRAWAL MD ? Final Pathologic Diagnosis: A. COLON, ASCENDING, BIOPSY: - ??Colonic mucosa with no significant diagnostic abnormality. B. COLON, TRANSVERSE, BIOPSY: - ??Colonic mucosa with features of atypical collagenous/lymphocytic colitis. See comment C. COLON, DESCENDING, BIOPSY: - ??Colonic mucosa with features of atypical collagenous/lymphocytic colitis. See comment D. COLON, SIGMOID, BIOPSY: - ??Colonic mucosa with features of atypical collagenous/lymphocytic colitis. See comment E. RECTUM, POLYP, BIOPSY: - ??Fragments of tubovillous adenoma. F. RECTUM, BIOPSY: - ??Colorectal mucosa with features of atypical collagenous/lymphocytic colitis. See comment. G. SMALL BOWEL, DUODENUM, BIOPSY: - ??Fragments of duodenal mucosa with increased intraepithelial lymphocytosis. See comment. H. STOMACH, ANTRUM, BIOPSY: - ??Antral mucosa with mild reactive (chemical) gastropathy. - ??No intestinal metaplasia or dysplasia identified. - ??No evidence of Helicobacter pylori on H&E. ?? Comment: A subset of colorectal biopsies shows acute inflammation, foci of intraepithelial lymphocytosis, expansion of lamina propria and surface damage; there is also lymphocytosis of duodenum. By morphological features alone, differential includes infectious etiologies or malabsorptive processes such as Celiac enteropathy, correlation is recommended. There is no chronicity or evidence of full-blown inflammatory bowel disease, although an evolving inflammatory bowel disease can not be entirely excluded. No viral inclusions or dysplasia noted. ?? Document reviewed and electronically signed by: FARA POWER MD Report ??Date: 06/10/2013 15:25 By the signature above, the attending physician certifies that he/she has personally conducted a gross and/or microscopic examination of the described specimens and rendered or confirmed the above diagnosis. Specimen(s) Received: A. ??Ascending colon (#1) B. ??Transverse colon (#2) C. ??Descending colon (#3) D. ??Sigmoid (#4) E. ??Polyp rectum (#5) F. ??Rectum (#6) G. ??Duodenum (#7) H. ??Antrum (#8) Clinical History: Diarrhea, melena, nausea, abd pain ?? Gross Description: A. ? Received in formalin labelled with proper patient identification (initials B., A.) ascending colon are two light smith tissues (0.4 x 0.2 x 0.2 cm and 0.4 x 0.3 x 0.1 cm). Entirely submitted in A1. B. ? Received in formalin labelled with proper patient identification (initials B., A.) transverse colon are two light smith tissues (0.3 x 0.2 x 0.1 cm and 0.8 x 0.2 x 0.1 cm). Entirely submitted in B1. C. ? Received in formalin labelled with proper patient identification (initials B., A.) descending colon are three light smith tissues (0.3 x 0.2 x 0.1 cm to 0.3 x 0.3 x 0.2 cm). Entirely submitted in C1. D. ? Received in formalin labelled with proper patient identification (initials B., A.) sigmoid are two light smith tissues (0.3 x 0.2 x 0.2 cm and 0.6 x 0.2 x 0.1 cm). Entirely submitted in D1. E. ? Received in formalin labelled with proper patient identification (initials B., A.) polyp rectum are two light smith tissues (0.3 x 0.2 x 0.2 cm each). Entirely submitted in E1. F. ? Received in formalin labelled with proper patient identification (initials B., A.) rectum are four light smith tissues (0.2 x 0.2 x 0.2 cm to 0.4 x 0.3 x 0.1 cm). Entirely submitted in F1-F2. G. ? Received in formalin labelled with proper patient identification (initials B., A.) duodenum are six light smith tissues (0.2 x 0.2 x 0.1 cm to 0.7 x 0.2 x 0.2 cm). Entirely submitted in G1-G2. H. ? Received in formalin labelled with proper patient identification (initials B., A.) gastric antrum are two light smith tissues (0.3 x 0.2 x 0.1 cm and 0.3 x 0.3 x 0.2 cm). Entirely submitted in H1. DESIREE Campos 06/08/2013 12:02 PM documented in this encounter Plan of Treatment Not on filedocumented as of this encounter Visit Diagnoses Diagnosis Diarrhea - Primary Generalized abdominal pain Abdominal pain, generalized Weight loss Loss of weight documented in this encounter Historical Medications This list may reflect changes made after this encounter. Medication Sig Dispensed Refills Start Date End Date oxyCODONE (ROXICODONE) 5 Take 5 mg by mouth as 0 mg immediate release needed for Pain. tablet added in this encounter Care Teams Escort Patients Relationship Specialty Start Date End Date Bambi Agrawal MD PCP - General 05/17/15 documented as of this encounter
--- OUTSIDE RECORDS SUMMARY | 2022-08-22 01:30 | XMS_ITS | Encounter Summary ---
:1980 Author Organization [facility] Address [address] [place] [address] Care Team Providers Name Role Phone Juan Dumont MD Primary Care Provider Unavailable Reason for Visit Reason Onset Date Comments Appointment Related 12/02/2016 Capsule Edoscopy Encounter Details Date Type Department Care Team Description 12/02/2016 Telephone [facility] Juan David Alvarado nt Related Gastroenterology - [facility] MD Layo (Capsule Edoscopy ) [phone] [place] [address] [facility] [address] [place] [address] (Wo rk) Social History Tobacco Use Types [...] Telephone Encounter - Shanita Vance RN - 12/02/2016 1344 EST Rescheduled for 12/31/16. Patient is aware. elephone Encounter - Mary Vu - 12/02/2016 1314 EST Patient called and would like to reschedule her capsule endoscopy. She said you could schedule her on Dec 31, , or at any time. She said you could leave her a voice mail. documented in this encounter Plan of Treatment Not on filedocumented as of this encounter Visit Diagnoses Not on filedocumented in this encounter Care Teams Package Maker Relationship Specialty Start Date End Date Juan Dumont MD PCP - General 05/17/15 documented as of this encounter
--- OUTSIDE RECORDS SUMMARY | 2022-08-22 01:30 | XMS_ITS | Encounter Summary ---
:1980 Author Organization [facility] Address [address] [place] [address] Care Team Providers Name Role Phone Bambi Agrawal MD Primary Care Provider Unavailable Encounter Details Date Type Department Care Team Description 09/08/2016 Hospital Encounter [facility] Daryl Cerna, Endoscopy - [facility] [address] [address] [address], [place] [id number] (Wo rk) Social History Tobacco Use Types [...] Blood Pressure 114/76 09/08/2016 1521 EDT Pulse - - Temperature 36.7 ??C (98.1 ??F) 09/08/2016 1335 EDT Respiratory Rate 22 09/08/2016 1500 EDT Oxygen Saturation 100% 09/08/2016 1521 EDT Inhaled Oxygen Concentration - - Weight 47.6 kg (105 lb) 09/08/2016 1336 EDT Height 154.9 cm (5' 1) 09/08/2016 1336 EDT Body Mass Index 19.84 09/08/2016 1336 EDT documented in this encounter Functional Status [...] Discharge Diagnoses Diagnosis R19.7 Diarrhea, unspecified-R19.7[ICD-10 -CM] R10.9 Unspecified abdominal pain-R10.9[I CD-10-CM] R63.4 Abnormal weight loss-R63.4[ICD-10- CM] K64.8 Other hemorrhoids-K64.8[ICD-10-CM] Z86.010 Personal history of colonic poly ps-Z86.010[ICD-10-CM] F17.200 Nicotine dependence, unspecified , uncomplicated-F17.200[ICD-10-CM] documented in this encounter Medications at Time of Discharge Medication Sig Dispensed Refills Start Date End Date cyclobenzaprine Take 10 mg by mouth 3 0 (FLEXERIL) 10 mg tablet times daily. levonorgestrel (MIRENA) 1 Each by intrauterine 0 20 mcg/24 hr (5 years) route once. IUD oxyCODONE (ROXICODONE) 5 Take 5 mg by mouth as 0 mg immediate release needed for Pain. tablet polyethylene glycol Follow instructions on 1 Bottle 0 08/02 (GOLYTELY) 236-22.74-6.74 'colonoscopy -5.86 gram suspension preparation instructions' sheet. documented as of this encounter Discharge Disposition Disposition Code Departure Means Destination Home or Self Care documented in this encounter Progress Notes Allegra Soria RN - 09/01/2016 0912 EDT Kayleigh Bess has been instructed as follows regarding medication administration for the dayof the scheduled procedure. Date of Surgery: 09/08/2016 Instructions for Taking Medications Day of Surgery Medication Sig Last Dose Hold DOS Take DOS levonorgestrel (MIRENA) 20 mcg/24 hr (5 years) IUD 1 Each by intrauterine route once. n/a oxyCODONE (ROXICODONE) 5 mg immediate release tablet Take 5 mg by mouth as needed for Pain. y prn polyethylene glycol (GOLYTELY) 236-22.74-6.74 -5.86 gram suspension Follow instructions on 'colonoscopy preparation instructions' sheet. As instructed documented in this encounter H&P Notes Layo Cerna MD - 09/08/2016 1424 EDT Endoscopy Sedation for Procedure History & Physical Date: 09/08/2016 Time: 14:24 Location: 4 Endo Planned Procedure: Colonoscopy, Gastroscopy Chief Complaint/Indications for Procedure: abd pain, diarrhea History Previous Complication with Sedation and/or Anesthesia? No Allergies: Allergies Allergen Reactions ??? Penicillins Anaphylaxis ??? Sulfa (Sulfonamide Antibiotics) Current Medications: Current Facility-Administered Medications Medication Route Frequency ??? lactated ringers (LR) infusion intravenous CONTINUOUS Past Medical History: Past Medical History Diagnosis Date ??? Colon polyp ??? Diarrhea ??? Environmental allergies ??? Heart murmur ??? Kidney stones Social History: Past Surgical History Procedure Laterality Date ??? Breast lumpectomy ??? Tonsillectomy Social History Substance Use Topics ??? Smoking status: Current Some Day Smoker ??? Smokeless tobacco: Never Used ??? Alcohol use No Family History: Family History Problem Relation Age of Onset ??? High Blood Pressure Mother ??? High Blood Pressure Father ??? Cancer Father ??? High Blood Pressure Maternal Aunt ??? Cancer Maternal Aunt ??? Cancer Paternal Aunt ??? High Blood Pressure Paternal Aunt ??? Cancer Maternal Grandmother ??? Cancer Maternal Grandfather ??? Cancer Paternal Grandmother ??? High Blood Pressure Paternal Grandmother ??? Cancer Paternal Grandfather Review of Systems as pertinent: Physical Exam Vital Signs: Visit Vitals ??? Temp 36.7 ??C (98.1 ??F) (Tympanic) ??? Resp 16 ??? Ht 154.9 cm (61) ??? Wt 47.6 kg (105 lb) ??? SpO2 99% ??? BMI 19.84 kg/m2 Heart Examination: Cardiac Regularity: Regular Respiratory Examination: Respiratory Pattern: Regular Breath Sounds Right: Clear Breath Sounds Left: Clear Abdominal Examination: (Soft, non-tender, bowel sounds normal) Additional physical exam related to the proposed procedure, patient activity, disease state and treatment as pertinent: Assessment Previous complications with sedation or anesthesia?: No Airway Concerns: None Anesthesia Classification: ASA 2 Plan: Proceed with sedation for procedure Fasting Time: Time of last liquid intake: 0800 Date of Last Liquid Intake: 09/08/16 Date of last solid intake: 09/06/16 Patient Appropriate Candidate for Planned Sedation?: Yes Layo Cerna MD 09/08/2016 14:24 documented in this encounter Miscellaneous Notes Anesthesia Post-Eval - Kavon Marley MD - 09/08/2016 1625 EDT Post Anesthesia Evaluation Note Date of Service: 09/08/2016 Kayleigh Bess, a 35 y.o. year old female has received MAC today. She has been evaluated, assessed and discharged from anesthesia care with stable cardiorespiratory function and alert mental status. The last set of recorded vital signs and pain rating were reviewed: Temp: 36.7 ??C (98.1 ??F), BP: 114/76, Resp: 22, SpO2: 100 %,Numeric Pain Level (Scale 1-10): 0 Kayleigh Bess participated in this evaluation unless otherwise noted. Her pain, nausea andvomiting have been managed and her body temperature and fluid balance have been restored. Additionalmonitoring and assessment needs have been addressed. If present, any postoperative events are documented below. Kavon Marley MD 09/08/2016 16:25 documented in this encounter Plan of Treatment Not on filedocumented as of this encounter Procedures Procedure Name Priority Date/Time Associated Diagnosis Comme nts PROCEDURE REPORTS - 09/09/2016 0:39 EDT R esults for this SCANNED procedure are i n the results section. PROCEDURE REPORTS - 09/09/2016 0:39 EDT R esults for this SCANNED procedure are i n the results section. SURGICAL PATHOLOGY Routine 09/08/2016 16:38 Resul ts for this EDT procedure are i n the results section. documented in this encounter Results PROCEDURE REPORTS - SCANNED (09/09/2016 0:39 EDT) Specimen Narrative This result has an attachment that is no t available. PROCEDURE REPORTS - SCANNED (09/09/2016 0:39 EDT) Specimen Narrative This result has an attachment that is no t available. SURGICAL PATHOLOGY (09/08/2016 16:38 EDT) Pathology Report: SURGICAL PATHOLOGY REPORT [facility] Reports generated via electronic interface contain kaleb ginal data; LABORATORY however they are lacking the format of the original re port. SERVICES Caution should be taken when reading/interpreting unfo rmatted reports. Name: ? KAYLEIGH BESS ? Accession #: ? [id number] ? : ? 1980 (Age: [age]) ??F ? Collect Date: ? 09/08/2016 ? Location: ? ENDO ? Receive Date: ? 016 ? Provider: LAYO CERNA MD Copy to: BAMBI AGRAWAL MD ? Final Pathologic Diagnosis: A. COLON, RIGHT, BIOPSY: - Colonic mucosa with no specific pathologic features. B. COLON, LEFT, BIOPSY: - Colonic mucosa with no specific pathologic features. C. RECTUM, BIOPSY: - Rectal mucosa with no specific pathologic features. D. SMALL INTESTINE, DUODENUM, BIOPSY: - ??Duodenal mucosa with no specific pathologic featur es. Document reviewed and electronically signed by: GERRI TRAN MD Report ??Date: 09/10/2016 16:07 By the signature above, the attending physician certif ies that he/she has personally conducted a gross and/or microscopic examin ation of the described specimens and rendered or confirmed the above diagnosi s. Specimen(s) Received: A. ??Right colon B. ??Left colon C. ??Rectum D. ??Duodenum Clinical History: Patient seen in clinic with abdominal pain, diarrhea a nd weight loss; normal colon, TI and EGD Gross Description: A. ?Received in formalin labelled with proper p atient identification (initials B, A) and right c olon are four pink-smith tissues (0.3 x 0.2 x 0.1 cm to 0.4 x 0.3 x 0.2 cm). Entirely submitted in A1 and A 2. B. ?Received in formalin labelled with proper p atient identification (initials B, A) and left co magy are three pink-smith tissues (0.3 x 0.2 x 0.1 cm, 0.4 x 0.2 x 0.1 cm and 0.6 x 0.8 x 0.2 cm). Entirely s ubmitted in B1. C. ?Received in formalin labelled with proper p atient identification (initials B, A) and rectum are three pink-smith tissues (0.2 x 0.2 x 0.1 cm, 0.3 x 0.2 x 0.1 cm and 0.6 x 0.4 x 0.2 cm). Entirely submi tted in C1. D. ?Received in formalin labelled with proper p atient identification (initials B, A) and duodenum are six p ink-smith tissues (0.2 x 0.1 x 0.1 cm to 0.6 x 0.3 x 0.2 cm). Entirely submitted in D1 and D2. RONALDO Patricio (ASCP) 09/08/2016 5:11 PM End of Report Specimen Performing Organization Address City/State/ZIP Code Phon e Number [facility] [address] [place] [address] SERVICES documented in this encounter Visit Diagnoses Not on filedocumented in this encounter Administered Medications Inactive Administered Medications - up to 3 most recent administrations Medication Order MAR Action Action Date Dose Rate Site lactated ringers (LR) infusion New Bag 09/08/2016 14:09 EDT 30 mL/hr 30 mL/hr at 30 mL/hr, 30 mL/hr, intravenous, CONTINUOUS, Starting on Thu09/08/16 at 1400, Until Thu09/09/16 at 0107, Routine, Preprocedure documented in this encounter Historical Medications This list may reflect changes made after this encounter. Medication Sig Dispensed Refills Start Date End Date cyclobenzaprine Take 10 mg by mouth 3 0 (FLEXERIL) 10 mg tablet times daily. levonorgestrel (MIRENA) 1 Each by intrauterine 0 20 mcg/24 hr (5 years) route once. IUD added in this encounter Active and Recently Administered Medications Times are shown in EDT. Continuous Medication Order 09/06/2016 09/07/2016 09/08/2016 lactated ringers (LR) infusion 1 409 (New Bag - Provider: Ida Fagan, RN)1527 (Completed - Provider: Candy Baltazar, BRODIE) at 30 mL/hr, 30 mL/hr, intravenous, CONT INUOUS, Starting Thu09/08/16 at 1400, Until Thu09/09/16 at 0107, Routine documented in this encounter Orders Discharge Count Last Ordered Date First Ordered Date DISCHARGE PATIENT 1 09/08/2016 documented in this encounter Care Teams Material Handling Crew Supervisor Relationship Specialty Start Date End Date Bambi Agrawal MD PCP - General 05/17/15 documented as of this encounter
--- OUTSIDE RECORDS SUMMARY | 2022-08-22 01:30 | XMS_ITS | Encounter Summary ---
:1980 Author Organization [facility] Address [address] [place] [address] Care Team Providers Name Role Phone Brian Nolen MD Primary Care Provider Unavailable Encounter Details Date Type Department Care Team Description 05/18/2012 Results Only [facility] Candelario Worley MD Laboratory Services - [address] [place] [address] [address] [place] [address] [phone] Social History Tobacco Use Types Packs/Day Years Used Date Never Assessed Sex Assigned at Date Recorded Not on file documented as of this encounter Plan of Treatment Not on filedocumented as of this encounter Procedures Procedure Name Priority Date/Time Associated Diagnosis Comme nts SURGICAL PATHOLOGY Routine 05/18/2012 0:00 EDT Re sults for this procedure are i n the results section. documented in this encounter Results SURGICAL PATHOLOGY (05/18/2012 0:00 EDT) Pathology Report: SURGICAL PATHOLOGY REPORT [facility] Reports generated via electronic interface contain kaleb ginal data; LAB however they are lacking the format of the original re port. Caution should be taken when reading/interpreting unfo rmatted reports. Name: ? JAZZY BESS ? Accession #: ? [id number] ? : ? 1980 (Age: 31) ??F ? Collect Date: ? 05/18/2012 ? Location: ? [facility] ? Receive Date: ? 012 ? Provider: CANDELARIO WORLEY MD Copy to: BAMBI AGRAWAL MD ? Final Pathologic Diagnosis: A. ?Tonsil, right, tonsillectomy: 1. ?Reactive follicular lymphoid hyperpla edgardo. B. ?Tonsil, left, tonsillectomy: 1. ?Reactive follicular lymphoid hyperpla edgardo. Document reviewed and electronically signed by: PEGGY BAIN MD Report ??Date: 05/20/2012 17:43 By the signature above, the attending physician certif ies that he/she has personally conducted a gross and/or microscopic examin ation of the described specimens and rendered or confirmed the above diagnosi s. Specimen(s) Received: A. ?Right tonsil B. ? Left tonsil Clinical History: ? Chronic tonsillitis Gross Description: ? Received in formalin labelled Jazzy Bess and right tonsil is a smith-pink ovoid unoriented soft tiss ue measuring 2.7 x 1.5 x 1.5 cm and is surfaced by a smith smooth to wrinkled mucosa. The cut surfaces are smith-pink with a crypt-like architecture. ? ?No discrete nodules are present. ??A claim representative section is submitted as (A1). Received in formalin labelled Clay Bess shaan and left tonsil is a smith-pink ovoid unoriented soft tissue measuring 2.5 x 1.5 x 1.5 cm and is surface by a smith smooth to w rinkled mucosa. ??The cut surfaces are smith-pink with a crypt-like architecture. ? ?No discrete nodules are present. ?? A claim representative section is submitted as (B). ??(Maye Dolan)/[facility] End of Report Specimen Performing Organization Address City/State/ZIP Code Phon e Number [facility] [address] [place] [address] SERVICES [facility] [address] [place] [address] documented in this encounter Visit Diagnoses Not on filedocumented in this encounter Care Teams Pharmacy Affairs Assistant Relationship Specialty Start Date End Date Brian Nolen MD PCP - General 09/25/1105/16 documented as of this encounter
--- OUTSIDE RECORDS SUMMARY | 2022-08-22 01:30 | XMS_ITS | Encounter Summary ---
:1980 Author Organization [facility] [place] [address] Care Team Providers Name Role Phone Juan Dumont MD Primary Care Provider Reason for Referral Consultation (Routine) - Closed Specialty Diagnoses / Procedures Referred By Contact Refer red To Contact Gastroenterology Diagnoses Diarrhea Gregg Kitchen MD [facility] [address] [place] [address] [place] [address] [place] [address] Fax: Referral ID Status Reason Start Date Expiration Date Visits V isits Requested Authorized [id number] Closed Consult & 09/17/2015 09/16/2016 1 1 Test Reason for Visit Reason Comments Referral Encounter Details Date Type Department Care Team Description 09/17/2015 Office Visit [place] [place] [facility] Gregg Kitchen MD [facility] [place] [address] RHEUMATOLOGY DEPT [phone] [place], [place] [address] (Wo rk) Social History Tobacco Use Types [...] Mass Index 20.97 09/17/2015 10:34 AM EDT documented in this encounter Progress Notes Juan Juan II, DO - 09/19/2015 4:38 PM EDT I have seen the patient and reviewed Dr. Kitchen's above history and I agree with the details as written. The assessment and plan were formulated in discussion with me and I agree with them as documented. Pertinent History: 34-year-old female with chronic diarrhea of unclear etiology. She was referred for possible rheumatologic etiology of her diarrhea. She has had significant weight loss related to this diarrhea. Pertinent Exam: No peripheral synovitis, no sclerodactyly, normal nailfold capillaries on capillaroscopy. Negative SONNY, and negative inflammatory markers. Major issues addressed/Plan: I do not know the cause of her chronic diarrhea, but do not suspect a rheumatologic illness as the cause. We discussed a referral to the GI team here for another opinion, and for management strategies - she is interested in this and we will facilitate an appointment. Gregg Kitchen MD - 09/17/2015 10:51 AM EDT HPI: Ms Funk is a 34 y/o female with chronic hx of diarrhea of unknown etiology. She was referred by GI team for evaluation of possible autoimmune etiology for her long standing diarrhea. Symptoms started 7 yrs ago with nausea, vomiting's and frequent episodes of loose watery stools. She was evaluated by GI team with endoscopy, colonoscopy and biopsies which had non specific findings which were not completely consistent with her symptoms. Patient reports having horrible episodes of diarrhea since her 1st child was born. Has occasionalblood in stool which she attributes to hemoroids. Has episodic epigastric and hypogastric pain unrelated to food or bowel movements. Reports passing mucous stools towards the end of the day. Abdominal pain does not get better with BM. She reports having progressively lost her sense of smell over the past 2-3 yrs. Has sore muscles and joint pains sometimes unrelated to her episodes of diarrhea. No rash No back/neck pain ROS: General Low grade fevers 99.8, (-)chills, (-)night sweats, (+)wt loss 60 lb in 12 months, poor apetite,(+) fatigue. HEENT (-)headache, (-)vision change, (-)tinnitus, (-)epistaxis, (-)sore throat, painful oral ulcers (+), no genital ulcers, bleeding gums, (-), (+)dry eyes, (+)dry mouth, (-)dysphagia, (+)GERD, randomly vomits, (-)photo sensitivity, (+)Hair loss, (-)vertigo CVS (-)chest pain, (-)palpitations, (-)pedal edema, (-)PND, (-)orthopnea. Pulm (-)shortness of breath, (-)MARIEE, (-)wheezes, (-)cough, (-)pleuritic pain GI (-)N/V, (-)abdominal pain, (-)emesis, (-)hematemesis, (+)hematochezia, (+) diahrrea. (-)hematuria, (-)dysuria, (-)frequency, (-)nocturia, (-)genital ulcers MS As above Endo (-)thyroid disorders, (-)diabetes, (-)temperature intolerance. Neuro (-)focal weakness, (-)paresthesias, (-)gait instability, Hx seizures (-) Skin (-)Raynaud's,(-) rash,(-) ulcers, telangectasia (-) Psych (-) mood disorder. No sleep problems Recent hospitalizations for serious infections -None Active Ambulatory Problems Diagnosis Date Noted ??? No Active Ambulatory Problems Resolved Ambulatory Problems Diagnosis Date Noted ??? No Resolved Ambulatory Problems No Additional Past Medical History No past surgical history on file. Allergies Allergen Reactions ??? Chocolate Flavor CIS - Hives ??? Penicillins CIS - stops breathing ??? Sulfa (Sulfonamide Antibiotics) CIS - stop breathing levonorgestrel (MIRENA) 20 mcg/24 hr (5 years) IUD; oxyCODONE-acetaminophen (PERCOCET) 5-325 mg Tablet History Social History ??? Marital Status: Single Spouse Name: N/A Number of Children: N/A ??? Years of Education: N/A Occupational History ??? Not on file. Social History Main Topics ??? Smoking status: Current Every Day Smoker ??? Smokeless tobacco: Not on file ??? Alcohol Use: Not on file ??? Drug Use: Not on file ??? Sexual Activity: Not on file Other Topics Concern ??? Not on file Social History Narrative ??? No narrative on file Physical exam: Filed Vitals: 09/17/15 1034 BP: 133/80 Pulse: 91 Temp: 36.5 ??C (97.7 ??F) Gen: Patient is awake, alert and oriented x 3, in no distress Skin: warm and dry, no rheumatologic rashes Lymph: no cervical or submandibular adenopathy Thyroid: no nodules or thyromegaly Mouth: moist mucous membranes, no oral ulcers Eyes: normal sclerae Heart: regular rate, no murmurs, rubs or gallops Lungs: clear to auscultation b/l Spine: normal ROM and no tenderness Joints: normal ROM throughout the upper and lower extremity joints, no synovitis or tenderness in the hands, wrists,elbows, shoulders, knees, ankles and feet Normal nail fold capillaries Labs: Non DH labs reviewed Antiglidin, A TTG, - Negative for celiac disease. Hx of microscopic colitis which got better on follow up biopsies. Colonoscopy and endoscopy- unremarkable for IBD ESR, CRP -WNR SONNY- neg Assessment/Plan: Ms Funk is a 34 y/o female with long standing hx of diarrhea. Patient was previously worked up by GI. No clear etiology was identified. Some of the rheumatological disease that are commonly associated with GI symptoms would be- scleroderma (no skin changes/raynauds or other systemic symptoms), vasculitis (no signs/symptoms suggestive of mesenteric angina/ischemic episodes,no rash, urinary changes), bechets (no genital or recurrent painful aphthous ulcers) and IBD associated causes ( unremarkable EGD/Colonoscopy). Apart for her GI symptoms I don't see other clinical or lab evidence suggestive of an underlying autoimmune etiology for her symptoms. However, few other conditions that I think could be worthwhile looking into would be - whipple's disease (abdominal pain, chronic diarrhea, arthralgia), chronic pancreatitis and bacterial overgrowth (although no risk factors). I would leave it to the GI team for further evaluation and workup if indicated. Considering her long standing hx of symptoms with unknown cause, I believe it might be worthwhile getting a second opinion from a different GI team, which could either help solidify what we already know or help find something new. Patients symptoms of episodes of arthralgias and myalgias are likely from myofascial pains. I discussed use of tylenol prn at this time. However, cymbalta could also be considered if her myofascial symptoms persists or if she has other indications for SNRI. - Outpatient referral to GI - Tylenol prn for arthralgia (Patient reports worsening GI symptoms with NSAID use) - Can consider cymbalta if myofacial pains persists or if she has other indications for SNRI use. RTC- PRN documented in this encounter Plan of Treatment Scheduled Referrals Name Type Priority Associated Order Schedule Diagnoses Referral to Outpatient Routine Diarrhea Ordered: Gastroenterology Referral 09/17/2015 documented as of this encounter Visit Diagnoses Diagnosis Diarrhea documented in this encounter Care Teams Feather Cutting Machine Feeder Relationship Specialty Start Date End Date Juan Dumont MD PCP - General Family Medicine 09/17/[address] [place] [address] documented as of this encounter
--- OUTSIDE RECORDS SUMMARY | 2022-08-22 01:30 | XMS_ITS | Encounter Summary ---
:1980 Author Organization [facility] [place] [address] Care Team Providers Name Role Phone Juan Dumont MD Primary Care Provider Encounter Details Date Type Department Care Team Description 10/19/2015 Telephone Gastroenterology at [facility] [place] [address] Social History Tobacco Use Types Packs/Day Years Used Date Current Every Day Smoker Sex Assigned at Date Recorded Not on file documented as of this encounter Miscellaneous Notes Telephone Encounter - Anjelica Avila - 10/19/2015 12:[address] Dumont calls again, looking to speak with Dr. Rodríguez. He can be reached back at the cell phone listed in yesterday's telephone note. documented in this encounter Plan of Treatment Not on filedocumented as of this encounter Visit Diagnoses Not on filedocumented in this encounter Care Teams Optical Goods Drill Operator Relationship Specialty Start Date End Date Juan Dumont MD PCP - General Family Medicine 09/17/[address] [place] [address] documented as of this encounter
--- OUTSIDE RECORDS SUMMARY | 2022-08-22 01:30 | XMS_ITS | Encounter Summary ---
:1980 Author Organization [facility] Address [address] [place] [address] Care Team Providers Name Role Phone Unavailable Primary Care Provider Unavailable Encounter Details Date Type Department Care Team Description 12/28/2000 Hospital Encounter [facility] MD Millie [address] [facility] [address] [place] [address] [facility] [phone] [place] [address] (Wo rk) Social History Tobacco Use Types Packs/Day Years Used Date Never Assessed Sex Assigned at Date Recorded Not on file documented as of this encounter Discharge Disposition Disposition Code Departure Means Destination Auto Discharge documented in this encounter Plan of Treatment Not on filedocumented as of this encounter Visit Diagnoses Not on filedocumented in this encounter
--- OUTSIDE RECORDS SUMMARY | 2022-08-22 01:30 | XMS_ITS | Encounter Summary ---
:1980 Author Organization [facility] Address [address] [place] [address] Care Team Providers Name Role Phone Unavailable Primary Care Provider Unavailable Encounter Details Date Type Department Care Team Description 06/12/2010 Abstract Used for ABSTRACTING Data Unknown, Doctor [phone] Social History Tobacco Use Types Packs/Day Years Used Date Never Assessed Sex Assigned at Date Recorded Not on file documented as of this encounter Plan of Treatment Not on filedocumented as of this encounter Visit Diagnoses Not on filedocumented in this encounter
--- OUTSIDE RECORDS SUMMARY | 2022-08-22 01:30 | XMS_ITS | Encounter Summary ---
:1980 Author Organization [facility] Address [address] [place] [address] Care Team Providers Name Role Phone Unavailable Primary Care Provider Unavailable Encounter Details Date Type Department Care Team Description 03/06/2003 Hospital Encounter [facility], Emergency Department - [place], [place] [address] [place], [place] [id number] Social History Tobacco Use Types Packs/Day Years Used Date Never Assessed Sex Assigned at Date Recorded Not on file documented as of this encounter Discharge Disposition Disposition Code Departure Means Destination Home or Self Care documented in this encounter Plan of Treatment Not on filedocumented as of this encounter Visit Diagnoses Not on filedocumented in this encounter
--- OUTSIDE RECORDS SUMMARY | 2022-08-22 01:30 | XMS_ITS | Encounter Summary ---
:1980 Author Organization [facility] Address [address] [place] [address] Care Team Providers Name Role Phone Juan Dumont MD Primary Care Provider Unavailable Encounter Details Date Type Department Care Team Description 03/17/2016 Orders Only [facility] Layo Alvarado, Gastroenterology - [facility] [address] [address] [address], [place] [phone] (Wo rk) Social History Tobacco Use Types [...] on filedocumented in this encounter Care Teams Advertising Sales Associate Relationship Specialty Start Date End Date Juan Dumont MD PCP - General 05/17/15 documented as of this encounter
--- OUTSIDE RECORDS SUMMARY | 2022-08-22 01:30 | XMS_ITS | Encounter Summary ---
:1980 Author Organization [facility] Address [address] [place] [address] Care Team Providers Name Role Phone Unavailable Primary Care Provider Unavailable Encounter Details Date Type Department Care Team Description 08/17/2003 Hospital Encounter [facility] - Shari Carlin MD [address] 1 [facility] [address] [place], [place] [id number] [place] [phone] (Wo rk) Social History Tobacco Use Types Packs/Day Years Used Date Never Assessed Sex Assigned at Date Recorded Not on file documented as of this encounter Discharge Disposition Disposition Code Departure Means Destination Auto Discharge documented in this encounter Plan of Treatment Not on filedocumented as of this encounter Procedures Procedure Name Priority Date/Time Associated Comments Diagnosis RAD US BREAST Routine 08/17/2003 13:53 Results fo r this UNILATERAL OR EDT procedure are in BILATERAL the results section. documented in this encounter Results RAD US BREAST UNILATERAL OR BILATERAL (08/17/2003 13:53 EDT) Anatomical Region Laterality Modality Other Specimen Impressions [facility] - 07/30/2009 3: 02 EDT IMPRESSION: LEFT BREAST - CATEGORY 1 Negative ultrasound at 3 o'clock, 4 cm o ut. Results and recommendations for follow-up were discu ssed with the patient by the radiologist at the time of the exam. Dec ision to biopsy should be based on clinical grounds. Age appropria te follow up is recommended. Current mammography screening guidelines recommend a yearly exam for women over age 40. OVERALL ASSESSMENT - NEGATIVE END OF IMPRESSION Narrative [facility] - 07/30/2009 3: 02 EDT DX UNI USLT BR MASS @ 2:00 X 3 WEEKS, VERY TENDER ??[PCP ARMANDO ROLAND, BESSY KUHN] No comparison films were available at th e time of this reading. Left Breast Findings (ultrasound project ion): Ultrasound demonstrates no sonographic a bnormality at 3 o'clock, 4 cm out from the nipple at the site of the c linically palpable mass. In this region, there is thick fibroglandul ar tissue, but no solid mass or cyst. Procedure Note Mak Franklin MD / Stacy Hooker MD - 07/30/2009 DX UNI USLT BR MASS @ 2:00 X 3 WEEKS, VE RY TENDER [PCP ARMANDO ROLAND, BESSY KUHN] No comparison films were available at th e time of this reading. Left Breast Findings (ultrasound project ion): Ultrasound demonstrates no sonographic a bnormality at 3 o'clock, 4 cm out from the nipple at the site of the c linically palpable mass. In this region, there is thick fibroglandul ar tissue, but no solid mass or cyst. IMPRESSION IMPRESSION: LEFT BREAST - CATEGORY 1 Negative ultrasound at 3 o'clock, 4 cm o ut. Results and recommendations for follow-up were discu ssed with the patient by the radiologist at the time of the exam. Dec ision to biopsy should be based on clinical grounds. Age appropria te follow up is recommended. Current mammography screening guidelines recommend a yearly exam for women over age 40. OVERALL ASSESSMENT - NEGATIVE END OF IMPRESSION Performing Organization Address City/State/ZIP Code Phon e Number [facility] [address] [facility] [address] [facility] [address] [place], [place] [address] documented in this encounter Visit Diagnoses Not on filedocumented in this encounter
--- OUTSIDE RECORDS SUMMARY | 2022-08-22 01:30 | XMS_ITS | Encounter Summary ---
:1980 Author Organization [facility] Address [address] [place] [address] Care Team Providers Name Role Phone Brian Nolen MD Primary Care Provider Unavailable Juan Dumont MD Primary Care Provider Unavailable Encounter Details Date Type Department Care Team Description 12/15/2003 Hospital Encounter [facility] - Other [facility] [address] [place] [address] Social History Tobacco Use Types Packs/Day Years [...] on filedocumented in this encounter Care Teams Ice House Supervisor Relationship Specialty Start Date End Date Brian Nolen MD PCP - General 09/25/1105/16 Juan Dumont MD PCP - General 05/17/15 documented as of this encounter
--- OUTSIDE RECORDS SUMMARY | 2022-08-22 01:30 | XMS_ITS | Encounter Summary ---
:1980 Author Organization [facility] Address [address] [place] [address] Care Team Providers Name Role Phone Brian Nolen MD Primary Care Provider Unavailable Encounter Details Date Type Department Care Team Description 06/07/2013 Results Only [facility] Romain Mejía , Laboratory Services - [address]ONNIE JENSEN [address] [place] [address] [place] [address] [phone] Social History Tobacco Use Types Packs/Day Years Used Date Never Assessed Sex Assigned at Date Recorded Not on file documented as of this encounter Plan of Treatment Not on filedocumented as of this encounter Procedures Procedure Name Priority Date/Time Associated Diagnosis Comme [facility] SURGICAL PATHOLOGY Routine 06/07/2013 9:26 EDT Re sults for this procedure are i n the results section. documented in this encounter Results SURGICAL PATHOLOGY (06/07/2013 9:26 EDT) Pathology Report: SURGICAL PATHOLOGY REPORT [facility] Reports generated via electronic interface contain kaleb ginal data; LAB however they are lacking the format of the original re port. Caution should be taken when reading/interpreting unfo rmatted reports. Name: ? JAZZY BESS ? Accession #: ? [id number] ? : ? 1980 (Age: 32) ??F ? Collect Date: ? 06/07/2013 ? Location: ? [facility] ? Receive Date: ? 013 ? Provider: ROMAIN MEJÍA DO Copy to: BAMBI AGRAWAL MD ? Final Pathologic Diagnosis: A. COLON, ASCENDING, BIOPSY: - ??Colonic mucosa with no significant diagnostic abno rmality. B. 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 See comment C. 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 See comment D. 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 See comment E. RECTUM, POLYP, BIOPSY: - ??Fragments of tubovillous adenoma. F. RECTUM, BIOPSY: - ??Colorectal mucosa with f eatures of atypical collagenous/lymphocytic colitis. See comment. G. SMALL BOWEL, DUODENUM, BIOPSY: - ??Fragments of duodenal mucosa with in creased intraepithelial lymphocytosis. See comment. H. STOMACH, ANTRUM, BIOPSY: - ??Antral mucosa with mild reactive (chemical) gastro susan. - ??No intestinal metaplasia or dysplasia identified. - ??No evidence of Helicobacter pylori on H&E. Comment: A subset of colorectal biopsies shows acute inflammati on, foci of intraepithelial lymphocytosis, expansion of lamina propria and surface damage; there is also lymphocytosis of duodenum. By morphologi madhav features alone, differential includes infectious etiolog ies or malabsorptive processes such as Celiac enteropathy, correlation is recommended. There is no chronicity or evidence of full-blown inflammatory bowel disease, alt beverley an evolving inflammatory bowel disease c an not be entirely excluded. No viral inclusions or dysplasia noted. ?? Document reviewed and electronically signed by: FARA POWER MD Report ??Date: 06/10/2013 15:25 By the signature above, the attending physician certif ies that he/she has personally conducted a gross and/or microscopic examin ation of the described specimens and rendered or confirmed the above diagnosi s. Specimen(s) Received: A. ??Ascending colon (#1) B. ??Transverse colon (#2) C. ??Descending colon (#3) D. ??Sigmoid (#4) E. ??Polyp rectum (#5) F. ??Rectum (#6) G. ??Duodenum (#7) H. ??Antrum (#8) Clinical History: Diarrhea, melena, nausea, abd pain Gross Description: A. ? Received in formalin labelled with proper pat ient identification (initials B., A.) ascending colon are two light smith tissues (0.4 x 0.2 x 0.2 cm and 0.4 x 0.3 x 0.1 cm). Entirely submitted in A1. B. ? Received in formalin labelled with proper pat ient identification (initials B., A.) transvers e colon are two light smith tissues (0.3 x 0.2 x 0.1 cm and 0.8 x 0.2 x 0.1 cm). Entirely submitted in B1. C. ? Received in formalin labelled with proper pat ient identification (initials B., A.) descending colon are three l ight smith tissues (0.3 x 0.2 x 0.1 cm to 0.3 x 0.3 x 0.2 cm). Entirely submitted in C 1. D. ? Received in formalin labelled with proper pat ient identification (initials B., A.) sigmoid are two light smith ti ssues (0.3 x 0.2 x 0.2 cm and 0.6 x 0.2 x 0.1 cm). Entirely submitted in D1. E. ? Received in formalin labelled with proper pat ient identification (initials B., A.) polyp rectum are two light smith tissues (0.3 x 0.2 x 0.2 cm each). Entirely submitted in E1. F. ? Received in formalin labelled with proper pat ient identification (initials B., A.) rectum a re four light smith tissues (0.2 x 0.2 x 0.2 cm to 0.4 x 0.3 x 0.1 cm). Entirely submitted in F1-F2. G. ? Received in formalin labelled with proper pat ient identification (initials B., A.) duodenum are six light smith t issues (0.2 x 0.2 x 0.1 cm to 0.7 x 0.2 x 0.2 cm). Entirely submitted in G1-G2. H. ? Received in formalin labelled with proper pat ient identification (initials B., A.) gastric a ntrum are two light smith tissues (0.3 x 0.2 x 0.1 cm and 0.3 x 0.3 x 0.2 cm). Entirely submitted in H1. DESIREE Campos 06/08/2013 12:02 PM End of Report Specimen Performing Organization Address City/State/ZIP Code Phon e Number [facility] [address] [place] [address] SERVICES [facility] [address] [place] [address] documented in this encounter Visit Diagnoses Not on filedocumented in this encounter Care Teams Business Process Engineer Relationship Specialty Start Date End Date Brian Nolen MD PCP - General 09/25/1105/16 documented as of this encounter
--- OUTSIDE RECORDS SUMMARY | 2022-08-22 01:30 | XMS_ITS | Encounter Summary ---
:1980 Author Organization [facility] [place] [address] Care Team Providers Name Role Phone Juan Dumont MD Primary Care Provider Encounter Details Date Type Department Care Team Description 10/18/2015 Telephone Gastroenterology at [facility] [place] [phone] Social History Tobacco Use Types Packs/Day Years Used Date Current Every Day Smoker Sex Assigned at Date Recorded Not on file documented as of this encounter Miscellaneous Notes Telephone Encounter - Anjelica Avila - 10/18/2015 10:52 AM EST Received a call from Dr. Juan Dumont, requesting to speak with Dr. Rodríguez regarding this patient's case. He can be reached via cell at [phone]. documented in this encounter Plan of Treatment Not on filedocumented as of this encounter Visit Diagnoses Not on filedocumented in this encounter Care Teams Geriatrician Relationship Specialty Start Date End Date Juan Dumont MD PCP - General Family Medicine 09/17/[address] [place] [address] documented as of this encounter
--- OUTSIDE RECORDS SUMMARY | 2022-08-22 01:30 | XMS_ITS | Encounter Summary ---
:1980 Author Organization [facility] Address [address] [place] [address] Care Team Providers Name Role Phone Unavailable Primary Care Provider Unavailable Encounter Details Date Type Department Care Team Description 11/22/2008 Before [facility] - Daryl Logan MD Converted Visit [facility] conversion [facility] ([facility]) [address] [place], [place] [id number] [place] [phone] (Wo rk) Social History Tobacco Use Types Packs/Day Years Used Date Never Assessed Sex Assigned at Date Recorded Not on file documented as of this encounter Plan of Treatment Not on filedocumented as of this encounter Procedures Procedure Name Priority Date/Time Associated Diagnosis Comme [facility] SURGICAL PATHOLOGY Routine 11/22/2008 0:00 EST Re sults for this procedure are i n the results section. documented in this encounter Results SURGICAL PATHOLOGY (11/22/2008 0:00 EST) Pathology Report: SURGICAL PATHOLOGY REPORT ? [facility] Reports generated via electr Scan & Target interface contain original data; ? LAB however they are lacking the format of the original report. ? Caution should be taken when reading/interpreting unformatted reports. ? Name: ? SHANTEL BARBOSA A ? Accession #: ? [id number] ? : ? 1980 (Age: 28) ??F ? Collec t Date: ? 11/22/2008 ? Location: ? [facility] ? Re ceive Date: ? 11/24/2008 ? Provider: GUILHERME LOGAN MD ? Copy to: WILLIE AVELINO BIZTALK CONSULTANT ? Final Pathologic Diagnosis: ? Uterine contents, hang cuation: ? - Immature, hypovascular, an d degenerating chorionic villi, membranes, and uterine decidua. ? Document reviewed and electr onically signed by: ? Naga Montalvo MD ? Report ??Date: 11/28/2008 15 :14 ? By the signature above, the attending physician certifies that he/she has ? personally conducted a gross and/or microscopic examination of the described ? specimens and rendered or co nfirmed the above diagnosis. ? Specimen(s) Received: ? Uterine contents ? Clinical History: ? 7 week missed abortio n ? Gross Description: ? Received in formalin labelled Bertolini and uterine contents is a 7.0 x 5.0 x 2.0 cm aggregate of mu ltiple smith-white soft tissue fragments. Within this aggregate is villous tissue with attached burns-white membranes. ??No parts are identified. ??Representa tive sections of membranous and villous tissue is ? submitted as (A1) and (A2) a nd client account representative sections of the remaining tissue ?? is submitted as (A3). ??(Lalo Rodrigez)/rossy ? End of Report ? Specimen Performing Organization Address City/State/ZIP Code Phon e Number [facility] [address] [place] [address] SERVICES [facility] [address] [place] [address] documented in this encounter Visit Diagnoses Not on filedocumented in this encounter
[2022-08-22 10:30] LABS: HCT 47.1 % (36.0-46.0); HGB 15.8 g/dL (11.2-15.7); MCH 30.4 pg (27.0-33.0); MCHC 33.5 % (32.0-36.0); MCV 91 fL (80-95); MPV 9.3 fL (8.0-11.0); Platelet Count 260 10^3/uL (130-400); RDW 12.1 % (11.7-14.6); RDW-SD 40.6 fL
[2022-08-22 11:07] LABS: ALT 26 U/L (14-59); AST 15 U/L (15-37); Albumin 4.5 g/dL (3.4-5.0); Alkaline Phosphatase 45 U/L (46-116); Anion Gap 10.2 mmol/L (3-11); BUN 7 mg/dL (7-18); Bilirubin, Total 0.5 mg/dL (0.2-1.0); C-Reactive Protein 0.11 mg/dL (0.0-0.3); CO2 25.8 mmol/L (21.0-32.0); CREATININE 0.7 mg/dL (0.55-1.02); Calcium 9.4 mg/dL (8.5-10.1); Calculated LDL 93 mg/dL (<100); Chloride 99 mmol/L (98-107); Cholesterol 166 mg/dL (<200); Estimated GFR 111.36 (mL/min/1.73m2); Glucose 91 mg/dL (74-106); HDL Cholesterol 56 mg/dL (40-60); Potassium 3.8 mmol/L (3.5-5.1); Sodium 135 mmol/L (136-145); TSH (W/Ref FT4) 1.67 uIU/mL (0.36-3.74); Total Protein 7.8 g/dL (6.4-8.2); Triglyceride 87 mg/dL (<150)
[2022-08-25 10:17] LABS: HIV-1/2 Ag & Ab Screen Negative (Negative)
[2022-08-25 10:26] LABS: HBs Antibody, Qual Negative (See Note); HBs Antibody, Quant <3.1 mIU/mL (See Note); Hepatitis B Core Antibody Negative (Negative); Hepatitis B surface Ag Negative (Negative); Hepatitis C Ab w Rflx HCV PCR Negative (Negative)
[2022-08-25 10:42] LABS: Hepatitis C Ab w Rflx HCV PCR Negative (Negative)
[2022-08-25 12:24] LABS: IgA 112 mg/dL (85-499); Interpretation (See Note); Tissue Transglutaminase IgA <1.2 U/mL (<4.0)
== END 2022-08-22 00:55 | disposition home or self-care (01) ==
LOC: LBO 00:55
PROVIDERS: Family Medicine; Surgery; PCP Nurse Practitioner Family; Visit Provider Nurse Practitioner Family
DX: R53.83 Other fatigue (principal); Z11.59 Encounter for screening for other viral diseases; Z13.6 Encounter for screening for cardiovascular disorders; K58.9 Irritable bowel syndrome, unspecified; R19.7 Diarrhea, unspecified; F41.1 Generalized anxiety disorder; K58.0 Irritable bowel syndrome with diarrhea; K62.89 Other specified diseases of anus and rectum; Z87.891 Personal history of nicotine dependence; D37.5 Neoplasm of uncertain behavior of rectum; K52.9 Noninfective gastroenteritis and colitis, unspecified; R10.30 Lower abdominal pain, unspecified
CPT/HCPCS: 36415; 80053; 80061; 82784; 83516; 85027; 86704; 86706; 86803; 87340; 87389; 83993; 84443; 86140

== ENCOUNTER 2022-08-27 08:58 | Outpatient (REF) | payer MEDICAID, SELFPAY ==
[2022-08-27 22:48] LABS: Campylobacter PCR Negative (Negative); Salmonella PCR Negative (Negative); Shiga Toxin PCR Negative (Negative); Shigella/Enteroinvasive Ecoli Negative (Negative)
[2022-08-29 18:14] LABS: Calprotectin <50.0 mcg/g
== END 2022-08-27 08:59 | disposition home or self-care (01) ==
LOC: LBN 08:58
PROVIDERS: PCP Nurse Practitioner Family; Visit Provider Surgery
DX: F41.1 Generalized anxiety disorder (principal); K58.0 Irritable bowel syndrome with diarrhea; K62.89 Other specified diseases of anus and rectum; Z87.891 Personal history of nicotine dependence; D37.5 Neoplasm of uncertain behavior of rectum; K52.9 Noninfective gastroenteritis and colitis, unspecified; R10.30 Lower abdominal pain, unspecified
CPT/HCPCS: 87505; 83993

== ENCOUNTER → 2022-09-01 01:32 | Outpatient (CLI) | payer MEDICAID, SELFPAY | PROVIDERS: PCP Nurse Practitioner Family; Visit Provider Family Medicine | CPT/HCPCS: 81025 ==

== ENCOUNTER 2022-09-02 07:09 | Day surgery (SDC) | payer MEDICAID, SELFPAY ==
[2022-09-02 07:02] VITALS: BMI 26.4
--- NOTE | 2022-09-02 07:02 | W.ANESPRE ---
General Info Date of Service Date Performed: 09/02/22 Height: 5 ft 1 in Weight: 63.503 kg Body Mass Index (BMI): 26.4 Surgical Procedure: Operation Date: 09/02/22 08:10 Proposed Procedure Side Surgeon p Colonoscopy Chau Soria MD s Possible Internal Hemorrhoid Banding Chau Soria MD Meds Allergies and Home Medications Allergies Allergy/AdvReac Type Severity Reaction Status Date / Time Penicillins Allergy Severe Anaphylaxis Verified 09/02/22 07:37 Sulfa (Sulfonamide Allergy Intermediate Rash Verified 09/02/22 07:37 Antibiotics) Home Medication Medication Instructions Recorded gabapentin 100 mg capsule 100 mg PO QHS #90 caps 01/20/22 fluoxetine 20 mg capsule 20 mg PO DAILY #90 caps 02/18/22 lorazepam 0.5 mg tablet 0.5 mg PO DAILY PRN anxiety #20 03/04/22 tabs cyclobenzaprine 10 mg tablet 10 mg PO DAILY PRN muscle spasm 05/05/22 #30 tabs nitroglycerin 0.4 % (w/w) rectal 1 inch NM BID #30 grams 08/14/22 ointment sodium sul 1.479 gram-potas ch 24 tab PO PER PKG DIR bowel prep 08/15/22 0.188 gram-magnes sul 0.225 gram #24 tabs tablet (Sutab) oxycodone 5 mg tablet 5 mg PO TID PRN pain #21 tabs 08/27/22 Current Visit Medications: Current Medications Generic Name Dose Route Start Last Admin Trade Name Freq PRN Reason Stop Dose Admin Ringer's Solution 1,000 mls @ 80 mls/hr 09/02/22 06:00 IV 09/02/22 23:59 INFUSION JAMES IV Miscellaneous Supplies 1 each 09/02/22 06:00 Iv Access IV 09/02/22 23:59 DIRECTED JAMES Sodium Chloride 0 ml 09/02/22 06:00 Normal Saline Flush 10 Ml Syr IV 09/02/22 23:59 PRN PRN Sodium Chloride 0 ml 09/02/22 06:00 Normal Saline 10 Ml Vial IJ 09/02/22 23:59 DIRECTED PRN Sterile Water 0 ml 09/02/22 06:00 Water,Injection,Sterile 10 Ml Vial IJ 09/02/22 23:59 DIRECTED PRN PFSH Active Problems Active Problems: Problem Status Onset Code Chronic diarrhea K52.9 Villous adenoma of rectum D37.5 Anal pain K62.89 Rectal pain K62.89 Personal history of nicotine dependence Z87.891 IBS (irritable bowel syndrome) K58.9 Lower abdominal pain R10.30 Generalized anxiety disorder F41.1 Medical History Medical History (Updated 09/02/22 @ 07:36 by Sunita Palma) History of gastroscopy Kidney stones Surgical History Surgical History (Updated 09/02/22 @ 07:36 by Sunita Palma) H/O breast biopsy H/O LEEP History of colonoscopy History of rhinoplasty Status post tonsillectomy Tobacco Smoking/Tobacco Use Status: Current every day Tobacco Type: cigarettes Passive smoking exposure: Yes Alcohol Alcohol Intake: never Substance Use Substance use: Occasionally Substance use type: marijuana Vital Signs and Lab Results Lab Results Blood Type / Crossmatch: No Data to Display Complete Blood Count: White Blood Count 8.60 10^3/uL (4.4-10.8) 08/22/22 10:19 Red Blood Count 5.20 10^6/uL (3.93-5.22) 08/22/22 10:19 Hemoglobin 15.8 g/dL (11.2-15.7) H 08/22/22 10:19 Hematocrit 47.1 % (36.0-46.0) H 08/22/22 10:19 Platelet Count 260 10^3/uL (130-400) 08/22/22 10:19 Complete Metabolic Panel: Sodium Level 135 mmol/L (136-145) L 08/22/22 10:19 Potassium Level 3.8 mmol/L (3.5-5.1) 08/22/22 10:19 Chloride Level 99 mmol/L (98-107) 08/22/22 10:19 Carbon Dioxide Level 25.8 mmol/L (21.0-32.0) 08/22/22 10:19 Blood Urea Nitrogen 7 mg/dL (7-18) 08/22/22 10:19 Creatinine 0.7 mg/dL (0.55-1.02) 08/22/22 10:19 Calcium Level 9.4 mg/dL (8.5-10.1) 08/22/22 10:19 Albumin 4.5 g/dL (3.4-5.0) 08/22/22 10:19 Glucose Level 91 mg/dL (74-106) 08/22/22 10:19 C-Reactive Protein 0.11 mg/dL (0.0-0.3) 08/22/22 10:19 Liver Function Panel: Alanine Aminotransferase (ALT/SGPT) 26 U/L (14-59) 08/22/22 10:19 Aspartate Amino Transf (AST/SGOT) 15 U/L (15-37) 08/22/22 10:19 Coagulation Panel: No Data to Display Cardiac Panel: No Data to Display Arterial Blood Gas: No Data to Display Venous Blood Gas: No Data to Display Pancreas Panel: No Data to Display Thyroid Panel: Thyroid Stimulating Hormone (TSH) 1.67 uIU/mL (0.36-3.74) 08/22/22 10:19 Infectious Disease: HIV (1&2) Ag and Ab, 4th Generation Negative (Negative) 08/22/22 10:19 Hepatitis B Surface Antigen Negative (Negative) 08/22/22 10:19 Hepatitis C Antibody Negative (Negative) 08/22/22 10:19 Blood Cultures: No Data to Display Toxicology Panel: No Data to Display Panel: No Data to Display Anesthesia Assessment and Plan Anesthesia History Personal History: No History of Anesthesia Complications Family History: No Family History of Anesthesia Complications Exercise Tolerance Exercise Tolerance: Metabolic Equivalents>4 Pertinent Negatives Pertinent Negatives: No Symptoms of GERD, No Major Cardiovascular Symptoms or Complaints, No Major Pulmonary Symptoms or Complaints and No History of CVA/TIA Cardiac & Pulmonary Exam Cardiac Exam: Normal S1/S2 Heart Sounds Pulmonary Exam: Clear Bilateral Breath Sounds Implantable Cardiac Device Does patient have a Pacemaker or an ICD?: No Airway Exam Known Difficult Airway: No Mallampati Class: 2 Mouth Opening: Normal (> 3cm) Thyromental Distance: Greater than 3 cm Neck Range of Motion: Full ROM Neck Circumference: Normal Teeth Condition: Normal Dentition ASA Classification ASA Score: ASA 2 Emergency Case?: No NPO Status NPO Status: NPO Clears >2 hours, Solids >8 hours Status Status: Negative HCG Anesthesia Plan Resuscitation Status: Full Code Anesthesia Technique: General Anesthesia Airway Planned: Natural Airway Monitors Used: Standard Monitors
[2022-09-02 07:15] VITALS: BP 111/89; PULSE 89; RESP 18; TEMP 36.6; O2SAT 98
[2022-09-02] MEDS: Lactated Ringers 1,000 ML 80 ML IV (08:12)
--- NOTE | 2022-09-02 08:32 | W.PM.DSUDISC ---
Discharge Plan Disposition Patient Disposition: HOME Condition: Good Discharge Details Reason For Visit: Diagnostic colonoscopy Attending Provider: Chau Soria Primary Care Provider: Marito Alex Home Meds and New Rx's Prescriptions: Continued lorazepam 0.5 mg tablet 0.5 mg PO DAILY PRN (Reason: anxiety) Qty: 20 5RF nitroglycerin 0.4 % (w/w) ointment 1 inch MN BID Qty: 30 2RF Sutab 1.479-0.188- 0.225 gram tablet 24 tab PO PER PKG DIR Qty: 24 0RF gabapentin 100 mg capsule 100 mg PO QHS Qty: 90 3RF fluoxetine 20 mg capsule 20 mg PO DAILY Qty: 90 3RF cyclobenzaprine 10 mg tablet 10 mg PO DAILY PRN (Reason: muscle spasm) Qty: 30 0RF oxycodone 5 mg tablet 5 mg PO TID MDD 15mg PRN (Reason: pain) Qty: 21 0RF Discharge Instructions Instructions: Colonoscopy (DC), Rubber Band Ligation (DC), Colorectal Polyps (GEN) Additional Instructions: 1. If tolerated, consume a soft, low fiber diet for 1-2 days. [address] Do not drive, drink alcohol, operate machinery, make critical decisions, or do activities that require coordination or balance for 24 hours. 3. Because air was put into your colon during the procedure, expelling air from your rectum (passing gas or farting) is normal. 4. You may not have a bowel movement for 1-3 days because of the colonoscopy prep. This is normal. 5. You may notice passage of bloody stools, clots, or small rubber bands in your bowel movement. This is a normal part of hemorrhoid banding. 6. Go directly to the emergency room if you notice any of the following: Develop chills (warm to touch), or if you have a thermometer your temperature is above 101 Difficulty breathing or difficultly swallowing Persistent vomiting Severe abdominal pain, other than gas cramps Severe chest pain Black, tarry stools Any bleeding ? exceeding one tablespoon 7. Call your physician if the site where your intravenous was started becomes red, swollen, painful, and warm to touch. 8. Your physician has reviewed your pre-procedure medications. Please continue to take those medications as previously ordered. You will be given specific information/education regarding any changes to your medications before leaving. 9. Use rbpk-fht-avtderc stool softeners like psyllium (Metamucil, Senokot) to help ensure soft bulky bowel movements 10. Okay to use tiqm-www-sekfwer sitz bath's with Epsom salt to help with perianal discomfort or pain. Activity:: Activity as Tolerated Diet:: As Tolerated Discharge Orders Discharge Orders: Discharge Order (Routine); Ordered 09/02/22 Ordered By: Chau Soria DS: Diagnosis Discharge Diagnosis (1) Internal hemorrhoid: Status: Acute Asessment and Plan: Use refx-nnb-wouqomc cream and suppositories to help manage hemorrhoid discomfort. (2) Rectal polyp: Status: Acute Asessment and Plan: My office will contact you with results of the biopsy
[2022-09-02] MEDS: LORazepam 2 MG/ML VIAL (08:50)
--- NOTE | 2022-09-02 09:10 | BOWEL_PTH ---
PATIENT: Kayleigh Henley LOC: [facility] U#:[id number] AGE/SX: 41/F ROOM: RE09/02/[address]: Chau Soria MD : 1980 BED: DIS: 09/02/2022 SPEC #: [id number] RECD: 09/02/22 12:21 STATUS: DAGOBERTO REQ #: [id number] BIENVENIDO: 09/02/22 09:[address]: Chau Soria DEPT: Surgical Specimen RECD BY: Roseanna Cooper ENTERED: 09/02/22 12:23 SP TYPE: Bowel OTHR DR: Marito Alex, DEN Tissues: 1 - BIOPSY BOWEL Procedures: GROSS AND MICRO LEVEL 4 Comments: [id number]
[2022-09-02] MEDS: Bupivacaine 0.5% Pres-Free W/EPI 30 ML VIAL (09:23)
[2022-09-02] MEDS: Lidocaine 1% Multi-Dose 10 ML VIAL (09:24)
[2022-09-02 09:43] VITALS: BP 89/60; PULSE 71; RESP 18; TEMP 36.8; O2SAT 96
[2022-09-02 10:10] VITALS: BP 104/59; PULSE 67; RESP 18; TEMP 36.4; O2SAT 98
--- NOTE | 2022-09-02 10:23 | W.ANESPOSTOP ---
Postoperative Evaluation Date, Time and Location Date Performed: 09/02/22 Time Performed: 09:45 Patient Location: Day Surgery Unit Vital Signs Most Recent Imported Vital Signs: Most Recent Vital Signs Temp Pulse Resp BP Pulse Ox 36.4 C L 67 18 104/59 L 98 09/02/22 10:10 09/02/22 10:10 09/02/22 10:10 09/02/22 10:10 09/02/22 10:10 Assessment Mental Status: Awake (Alert & Oriented to Patient Baseline) Airway and Respiratory Function: Patent airway with normal (patient baseline) respiratory exam Cardiovascular Function: Hemodynamically Stable Hydration Status: Adequately Hydrated Nausea & Vomiting: No Nausea or Vomiting Pain: Pain is tolerable per patient (describing rectal pressure at this time) Peripheral Nerve Block: Patient did not receive a nerve block
--- NOTE | 2022-09-02 11:37 | W.PM.OP ---
Date of service: 09/02/22 Time of Service: 09:28 Operative Note Operative Note DATE OF PROCEDURE: 09/02/22 PRE-OP DIAGNOSIS: Anal pain POST-OP DIAGNOSIS: other (Rectal polyp at 20 cm, internal hemorrhoids) PROCEDURE: Diagnostic colonoscopy, anoscopy, banding of internal hemorrhoids SURGEON: Chau Soria ANESTHESIA TYPE: General:No Airway Refer to Anesthesia Record ESTIMATED BLOOD LOSS: 10 PATHOLOGY: other (Rectal polyp at 20 cm) COMPLICATIONS: None Patient was transported to: same day Patient's condition: stable Indications: Liz is a 41-year-old woman whose had several weeks of anal and rectal pain. She was unable to tolerate physical exams in the office. 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 She was seen by my partner Dr. De Leon, and plans were made for colonoscopy. Unfortunately, because of an emergency, Dr. De Leon is unable to conduct the colonoscopy, therefore I reviewed the risks benefits, and indications for colonoscopy with Liz, and she provided informed consent. Findings: Rectal polyp at 20 cm, internal hemorrhoids Procedure Description: After the induction of monitored anesthetic care, and with the patient in left lateral decubitus position, I began by performing an external anorectal exam.? Perineum and skin were normal, as was the anal verge.? She has some fibrosed external hemorrhoid skin tags I do not see any evidence of active external hemorrhoid disease, nor do I see any signs of anal fissures or other anorectal pathology.? Next, I performed a digital rectal exam.? She has some internal hemorrhoids.? Next, I advanced a colonoscope into the rectal vault.? I performed retroflexion.? There were moderate internal hemorrhoid.? Using insufflation, I then advanced the colonoscope beyond the rectal folds and into the sigmoid colon before advancing towards the cecum.? The quality of the prep was at.? The scope was noted to be in the cecum by identification of the ileocecal valve and appendiceal orifice.? I then began withdrawing the colonoscope using repeated irrigation as necessary for full evaluation of the colonic mucosa. ?Once the scope was withdrawn to the level of the rectum, great care was taken to examine portions of the rectal folds.?Around 20 cm from the anal verge I identified a 0.5 cm polyp. ?It appeared sessile in character. ?I was able to remove this with a cold forceps. ?I examined the site, and there was minimal bleeding. ?Once this was completed, I continued to withdraw the scope and examine the remainder of the colonic mucosa. At the conclusion of the colonoscopy, I inserted a lighted anoscope. There were 2 prominent internal hemorrhoid pillars. One was in the posterior midline, and one was slightly left of this. I banded these internal hemorrhoids with the assistance of a suction banding device. I also performed perianal injection with local anesthetic. Additionally, I created a mix of local anesthetic surgery lube. Saturated gauze sponge and allow this to dwell in the anus for 5 minutes. The gauze was removed, and the patient was allowed to wake from anesthesia and transferred to the same-day
== END 2022-09-02 10:55 | disposition home or self-care (01) ==
PROVIDERS: PCP Nurse Practitioner Family; Visit Provider Surgery
PROC: 0DJD8ZZ Inspection of Lower Intestinal Tract, Via Natural or Artificial Opening Endoscopic (ICD-10-PCS; CPT 45378; principal; 2022-09-02 08:00)
DX: K62.89 Other specified diseases of anus and rectum (principal); K62.1 Rectal polyp; K64.8 Other hemorrhoids
CPT/HCPCS: 45380; 46221; 81025; 88305; J2060

== ENCOUNTER → 2024-04-08 00:18 | Outpatient (CLI) | payer MEDICAID, SELFPAY ==
--- NOTE | 2024-04-08 08:00 | DI.MAMMO_ITS ---
Exam(s) MAMMO SCREENING EXAM: MAMMO SCREENING CLINICAL HISTORY: screening TECHNIQUE: Mammograms were interpreted according to the usual protocol including computer analysis w [employer] CAD system, tomosynthesis and C-view imaging. COMPARISON: FINDINGS: The breasts are composed of heterogeneously dense fibroglandular densities, Breast Density category C . No suspicious masses or suspicious microcalcifications are seen. Either breast Area of dense tissue in the superior left breast. Nodular asymmetry medial left breast. Spot compre ssion views and ultrasound are requested further evaluation. No skin thickening or abnormal axillary lymph nodes are seen. IMPRESSION: BI-RADS Category 0 - Assessment Incomplete: Need additional imaging evaluation Breast Density Category C, heterogeneously Dense. The mammogram demonstrates the patient's breast tissue is dense. Dense breast tissue is very common a nd is not abnormal but dense breast tissue can make it harder to find cancer on a mammogram. Also, de nse breast tissue may increase breast cancer risk. This information about the result of the mammogram report was provided to the patient to raise their awareness. Use this report when you speak with the patient about their risks for breast cancer, which includes their family history. At that time, you may recommend additional screening tests (Ultrasound or MRI) as they might be useful based on their r isk. A negative radiographic report should not delay biopsy if a dominant or clinically suspicious mass is present. Up to ten percent of cancers are not identified on mammography. A negative report may reinforce clinical impression. Adenosis and dense breasts may obscure an underlying neoplasm. False positive reports average 6 to 10%.
== END ==
PROVIDERS: PCP Nurse Practitioner Family; Visit Provider Obstetrics & Gynecology
DX: Z12.31 Encounter for screening mammogram for malignant neoplasm of breast (principal); R92.332 Mammographic heterogeneous density, left breast
CPT/HCPCS: 77063; 77067

== ENCOUNTER → 2024-04-12 01:01 | Outpatient (CLI) | payer MEDICAID, SELFPAY ==
--- NOTE | 2024-04-12 | DI.MAMMO_ITS ---
Exam(s) MG MAMMO SCREEN CALL BACK UNI US BREAST LT COMPLETE EXAM: MG MAMMO SCREEN CALL BACK UNI-LEFT AND COMPLETE LEFT BREAST ULTRASOUND CLINICAL HISTORY: F/U MAMMO, R92.8,LT NODULAR ASYMMETRY. TECHNIQUE: Unilateral LEFT BREAST spot mammographic images obtained with 3D tomosynthesisand [employer] ng computer aided detection (CAD). . Complete LEFT breast Ultrasound was also performed, including all 4 quadrants, the retroareolar regio n, and the ipsilateral axilla. COMPARISON: Prior mammograms were reviewed. This additional imaging was performed due to findings described on the recent screening BASELINE mammogram of 04/08/2024.. This 43-year-old patient at surgical removal of what was probably a fibroadenoma in the opposite-righ t breast in early XXXX. FINDINGS: DIAGNOSTIC MAMMOGRAM: Additional mammographic views performed todayare somewhat equivocal for the presence of true nodules. We proceeded with ultrasound. COMPLETE LEFT BREAST ULTRASOUND: Ultrasound performed today reveals dense tissue at the 1-2 o'clock positions corresponding to finding on the mammogram. Also no distinct nodules correspond to an area of asymmetric density seen medial of center on the CC view.. The only focal finding is a small 3 millimeter 9 microcyst at the 10 o'clock position. No solid lesions seen in all 4 quadrants. Scanning of the ipsilateral axilla reveals no significant adenopathy. IMPRESSION: 1. Benign-appearing findings as above. Appropriate follow-up as discussed by myself with the patient today is repeat left breast MAMMOGRAM i n 6 months to ensure mammographic stability.. The patient was informed of these findings and recommendations by myself prior to leaving the depart ent today. BI-RADS Category 3 - 6 month - Probably Benign Finding: Recommend follow-up mammography in 6 months Breast Density - Category C - Heterogeneously dense Breast density Category C or D implies that the patient has dense breast tissue. Dense breast tissue can make it harder to find cancer on a mammogram. Dense breast tissue is also associated with an incr eased risk of breast cancer. This information about the result of the mammogram report was provided to the patient to raise their awareness. Use this report when you speak with the patient about their risks for breast cancer, which includes their family history. At that time, you may recommend additional screening tests (Ultrasoun d or MRI) as these tests may add significant information. A negative radiographic report should not delay biopsy if a dominant or clinically suspicious mass is present. Up to ten percent of cancers are not identified on mammography. A negative report may reinforce clinical impression. Adenosis and dense breasts may obscure an underlying neoplasm. False positive reports average 6 to 10%. Patient will receive a letter notifying them of these results.
== END ==
PROVIDERS: PCP Nurse Practitioner Family; Visit Provider Obstetrics & Gynecology
DX: Z12.31 Encounter for screening mammogram for malignant neoplasm of breast (principal); R92.8 Other abnormal and inconclusive findings on diagnostic imaging of breast
CPT/HCPCS: 76642; 77063; 77067

== ENCOUNTER 2024-06-27 10:37 | Outpatient (REF) | payer MEDICAID, SELFPAY ==
--- NOTE | 2024-06-27 08:20 | PAPFT_PTH ---
PATIENT: Kayleigh Henley LOC: [facility] U#:[id number] AGE/SX: 43/F ROOM: RE06/27/[address]: Tania Mcclendon DO : 1980 BED: DIS: 06/27/2024 SPEC #: [id number] RECD: 06/27/24 13:04 STATUS: DAGOBERTO REQ #: [id number] BIENVENIDO: 06/27/24 08:[address]: Tania Mcclendon [facility] Cytology RECD BY: Roseanna Cooper ENTERED: 06/27/24 13:04 SP TYPE: PAPFT URVASHI DR: Marito Alex, DEN Tissues: 1 - CX/ENDOCX FOR PAP SMEARS Procedures: PAP THIN PREP/[facility] Screening HPV DNA PROBE Comments: [id number] (HPV 16 & 18/45)
== END 2024-06-27 10:38 | disposition home or self-care (01) ==
LOC: LBN 10:37
PROVIDERS: PCP Nurse Practitioner Family; Visit Provider Obstetrics & Gynecology
DX: Z12.4 Encounter for screening for malignant neoplasm of cervix (principal); Z97.5 Presence of (intrauterine) contraceptive device; R87.612 Low grade squamous intraepithelial lesion on cytologic smear of cervix (LGSIL)
CPT/HCPCS: 88142; 87624

== ENCOUNTER 2024-07-28 09:10 | Outpatient (REF) | payer MEDICAID, SELFPAY ==
--- NOTE | 2024-07-28 08:30 | ENDO_PTH ---
PATIENT: Kayleigh Henley LOC: [facility] U#:[id number] AGE/SX: 43/F ROOM: RE07/28/[address]: Tania Mcclendon DO : 1980 BED: DIS: 07/28/2024 SPEC #: [id number] RECD: 07/28/24 12:51 STATUS: DAGOBERTO REQ #: [id number] BIENVENIDO: 07/28/24 08:[address]: Tania Mcclendon DEPT: Surgical Specimen RECD BY: Roseanna Cooper ENTERED: 07/28/24 12:52 SP TYPE: Endo OTHR DR: Unknown,Unknown Tissues: 1 - ENDOCERVICAL BX/CURRETTE 2 - CX/ENDOCX FOR PAP SMEARS Procedures: GROSS AND MICRO LEVEL 4 IMMUNOPEROXIDASE STAIN Comments: [id number]
== END 2024-07-28 09:11 | disposition home or self-care (01) ==
LOC: LBN 09:10
PROVIDERS: Visit Provider Obstetrics & Gynecology
DX: F41.1 Generalized anxiety disorder (principal); K62.5 Hemorrhage of anus and rectum; F41.9 Anxiety disorder, unspecified; K62.89 Other specified diseases of anus and rectum; Z87.891 Personal history of nicotine dependence; K52.9 Noninfective gastroenteritis and colitis, unspecified
CPT/HCPCS: 88305; 88361

== ENCOUNTER 2024-09-16 02:03 | Outpatient (CLI) | payer MEDICAID, SELFPAY ==
[2024-09-16 10:29] LABS: Abs Immature Grans 0.02 10^3/uL (0.0-0.06); Absolute Basophil Count 0.03 10^3/uL (0.0-0.2); Absolute Eosinophil Count 0.07 10^3/uL (0.0-0.7); Absolute Lymphocyte Count 1.37 10^3/uL (1.2-3.4); Absolute Monocyte Count 0.57 10^3/uL (0.1-0.8); Basophils % 0.4 %; Eosinophils % 0.8 %; HCT 51.2 % (36.0-46.0); Immature Grans % 0.2 %; Lymphocytes % 16.4 %; MCH 30.6 pg (27.0-33.0); MCHC 33.2 % (32.0-36.0); MCV 92 fL (80-95); MPV 8.8 fL (8.0-11.0); Monocytes % 6.8 %; Neutrophils % 75.4 %; Platelet Count 296 10^3/uL (130-400); RBC 5.55 10^6/uL (3.93-5.22); RDW 12.1 % (11.7-14.6); RDW-SD 41.8 fL; WBC 8.36 10^3/uL (4.4-10.8)
[2024-09-16 11:09] LABS: ALT 49 U/L (14-59); AST 19 U/L (15-37); Albumin 4.2 g/dL (3.4-5.0); Alkaline Phosphatase 54 U/L (46-116); Anion Gap 8.6 mmol/L (3-11); BUN 9 mg/dL (7-18); Bilirubin, Total 0.34 mg/dL (0.2-1.0); CO2 29.4 mmol/L (21.0-32.0); CREATININE 0.8 mg/dL (0.55-1.02); Calcium 9.4 mg/dL (8.5-10.1); Chloride 104 mmol/L (98-107); Glucose 99 mg/dL (74-106); Potassium 4.5 mmol/L (3.5-5.1); Sodium 142 mmol/L (136-145); Total Protein 7.6 g/dL (6.4-8.2)
== END 2024-09-16 02:04 | disposition home or self-care (01) ==
LOC: LBO 02:03
PROVIDERS: Nurse Practitioner Family; PCP Family Medicine; Visit Provider Obstetrics & Gynecology
DX: R10.9 Unspecified abdominal pain (principal); G89.29 Other chronic pain; K58.0 Irritable bowel syndrome with diarrhea; K52.9 Noninfective gastroenteritis and colitis, unspecified; Z13.811 Encounter for screening for lower gastrointestinal disorder; Z13.810 Encounter for screening for upper gastrointestinal disorder
CPT/HCPCS: 36415; 80053; 85025

== ENCOUNTER 2024-09-20 11:29 | Outpatient (CLI) | payer MEDICAID, SELFPAY | END 2024-09-20 11:30 | LOC: LBO 11:29 | PROVIDERS: PCP Family Medicine; Visit Provider Obstetrics & Gynecology | DX: Z01.818 Encounter for other preprocedural examination (principal); D75.1 Secondary polycythemia; R10.84 Generalized abdominal pain; G89.29 Other chronic pain; F41.1 Generalized anxiety disorder | CPT/HCPCS: 36415; 86850; 86900; 86901 ==

== ENCOUNTER 2024-09-21 06:15 | Day surgery (SDC) | payer MEDICAID, SELFPAY ==
[2024-09-21 06:29] VITALS: BP 106/72; PULSE 106; RESP 16; TEMP 37.1; O2SAT 97
--- NOTE | 2024-09-21 06:57 | ANES.PREOP_ITS ---
General Info Date of Service Date Performed: 09/21/24 Height: 5 ft 1 in Weight: 58.6 kg Body Mass Index (BMI): 24.4 Surgical Procedure: Operation Date: 09/21/24 07:40 Proposed Procedure Side Surgeon p Calebp [facility] Biopsy Tania Mcclendon DO Meds Allergies and Home Medications Allergies Allergy/AdvReac Type Severity Reaction Status Date / Time Penicillins Allergy Severe Anaphylaxis Verified 09/21/24 06:50 Sulfa (Sulfonamide Allergy Intermediate Rash Verified 09/21/24 06:50 Antibiotics) Home Medication ?Medication ?Instructions ?Recorded cyclobenzaprine 10 mg tablet 10 mg PO DAILY PRN muscle spasm 09/06/24 #30 tabs fluoxetine 20 mg capsule 20 mg PO DAILY #90 caps 09/06/24 lorazepam 0.5 mg tablet 0.5 mg PO BID anxiety #58 tabs 09/06/24 naloxone 4 mg/actuation nasal 4 mg intranasal Q2M PRN opioid 09/06/24 spray (Narcan) overdose #2 ea oxycodone 5 mg tablet 5 mg PO Q12H PRN pain #56 tabs 09/19/24 Current Visit Medications: Current Medications Generic Name Dose Route Start Last Admin Trade Name Freq PRN Reason Stop Dose Admin Ringer's Solution 1,000 mls @ 125 mls/hr 09/21/24 06:00 IV 09/21/24 23:59 INFUSION JAMES IV Miscellaneous Supplies 1 each 09/21/24 06:00 Iv Access IV 09/21/24 23:59 DIRECTED JAMES Sodium Chloride 0 ml 09/21/24 06:00 Normal Saline Flush 10 Ml Syr IV 09/21/24 23:59 PRN PRN Sodium Chloride 0 ml 09/21/24 06:00 Normal Saline 10 Ml Vial IJ 09/21/24 23:59 DIRECTED PRN Sterile Water 0 ml 09/21/24 06:00 Water,Injection,Sterile 10 Ml Vial IJ 09/21/24 23:59 DIRECTED PRN PFSH Active Problems Active Problems: Problem Status Onset Code Chronic generalized abdominal pain Acute R10.84, G89.29 Polycythemia Acute D75.1 AAMIR II (cervical intraepithelial neoplasia II) Acute N87.1 Cannabis dependence with current use Acute F12.20 Low grade squamous intraepithelial lesion (LGSIL) on cervical Pap smear Acute R87.612 Internal hemorrhoid Acute K64.8 Chronic diarrhea Acute K52.9 Rectal pain Acute K62.89 Personal history of nicotine dependence Acute Z87.891 Generalized anxiety disorder Chronic F41.1 IBS (irritable bowel syndrome) Chronic K58.9 Lower abdominal pain Chronic R10.30 Medical History Medical History Rectal polyp Villous adenoma of rectum (2018) Bilateral ovarian cysts Cholelithiasis Abnormal mammogram of left breast Abnormal mammogram left breast 02/2024. Recommend follow-up mammogram left breast 09/22 Breast tenderness in female History of gastroscopy Kidney stones Surgical History Surgical History History of foot surgery for plantar fascititis H/O LEEP H/O breast biopsy History of rhinoplasty Status post tonsillectomy Tobacco Smoking/Tobacco Use Status: Current every day Tobacco Type: cigarettes Smoking cigarettes per day: 20 Years smoked: 10 Passive smoking exposure: Yes Counseling given: provider counseling Alcohol Alcohol Intake: never Substance Use Substance use: Daily Substance use type: marijuana Details: last smoked marijuana 09/20/24 2 cigarettes morning of 09/21/24 Vital Signs and Lab Results Vital Signs Most Recent Vital Signs in EMR: Most Recent Vital Signs Temp Pulse Resp BP Pulse Ox 37.1 C 106 H 16 106/72 97 09/21/24 06:29 09/21/24 06:29 09/21/24 06:29 09/21/24 06:29 09/21/24 06:29 Point of Care Results Point of Care Results: POC- Test(urine) Negative 09/21/24 06:47 Lab Results Blood Type / Crossmatch: Antibody Screen NEGATIVE 09/20/24 Complete Blood Count: White Blood Count 8.36 10^3/uL (4.4-10.8) 09/16/24 10:20 Red Blood Count 5.55 10^6/uL (3.93-5.22) H 09/16/24 10:20 Hemoglobin 17.0 g/dL (11.2-15.7) H 09/16/24 10:20 Hematocrit 51.2 % (36.0-46.0) H 09/16/24 10:20 Platelet Count 296 10^3/uL (130-400) 09/16/24 10:20 Complete Metabolic Panel: Sodium 142 mmol/L (136-145) 09/16/24 10:20 Potassium 4.5 mmol/L (3.5-5.1) 09/16/24 10:20 Chloride 104 mmol/L (98-107) 09/16/24 10:20 Carbon Dioxide 29.4 mmol/L (21.0-32.0) 09/16/24 10:20 BUN 9 mg/dL (7-18) 09/16/24 10:20 Creatinine 0.8 mg/dL (0.55-1.02) 09/16/24 10:20 Est GFR (CKD-EPI 2020) 93.70 (mL/min/1.73m2) 09/16/24 10:20 Calcium 9.4 mg/dL (8.5-10.1) 09/16/24 10:20 Albumin 4.2 g/dL (3.4-5.0) 09/16/24 10:20 Glucose 99 mg/dL (74-106) 09/16/24 10:20 Liver Function Panel: Alanine Aminotransferase (ALT/SGPT) 49 U/L (14-59) 09/16/24 10: 20 Aspartate Amino Transf (AST/SGOT) 19 U/L (15-37) 09/16/24 10:20 Coagulation Panel: No Data to Display Cardiac Panel: No Data to Display Arterial Blood Gas: No Data to Display Venous Blood Gas: No Data to Display Pancreas Panel: No Data to Display Thyroid Panel: No Data to Display Infectious Disease: No Data to Display Blood Cultures: No Data to Display Toxicology Panel: No Data to Display Panel: No Data to Display Anesthesia Assessment and Plan Anesthesia History Personal History: No History of Anesthesia Complications Family History: No Family History of Anesthesia Complications Exercise Tolerance Exercise Tolerance: Metabolic Equivalents>4 Cardiac & Pulmonary Exam Cardiac Exam: Normal S1/S2 Heart Sounds Pulmonary Exam: Wheezing Present Implantable Cardiac Device Does patient have a Pacemaker or an ICD?: No Airway Exam Known Difficult Airway: No Mallampati Class: 2 Mouth Opening: Normal (> 3cm) Thyromental Distance: Greater than 3 cm Neck Range of Motion: Full ROM Neck Circumference: Normal Teeth Condition: Normal Dentition ASA Classification ASA Score: ASA 2 Emergency Case?: No NPO Status NPO Status: NPO Clears >2 hours, Solids >8 hours Status Status: Negative HCG Anesthesia Plan Resuscitation Status: Full Code Anesthesia Technique: General Anesthesia Airway Planned: Natural Airway Monitors Used: Standard Monitors
[2024-09-21 07:19] VITALS: BMI 24.4
[2024-09-21] MEDS: Lactated Ringers 1,000 ML 125 ML IV (07:33)
--- NOTE | 2024-09-21 07:58 | CER_PTH ---
PATIENT: Kayleigh Henley LOC: [facility] U#:[id number] AGE/SX: 43/F ROOM: RE09/21/[address]: Tania Mcclendon DO : 1980 BED: DIS: 09/21/2024 SPEC #: [id number] RECD: 09/21/24 13:15 STATUS: SOUT REQ #: [id number] BIENVENIDO: 09/21/24 07:[address]: Tania Mcclendon DEPT: Surgical Specimen RECD BY: Roseanna Cooper ENTERED: 09/21/24 13:15 SP TYPE: CER OTHR DR: Isreal Bailey DO Tissues: 1 - CERVICAL CONE BX Procedures: GROSS AND MICRO LEVEL 5 Comments: [id number]
[2024-09-21 08:16] VITALS: BP 107/65; PULSE 75; RESP 18; TEMP 36.5; O2SAT 97
--- NOTE | 2024-09-21 08:25 | W.PM.OP ---
Date of service: 09/21/24 Time of Service: 08:25 Operative Note Operative Note DATE OF PROCEDURE: 09/21/24 PRE-OP DIAGNOSIS: AAMIR-2 POST-OP DIAGNOSIS: same PROCEDURE: Loop electrocautery excisional procedure SURGEON: Tania Mcclendon ANESTHESIA TYPE: General:No Airway Refer to Anesthesia Record ESTIMATED BLOOD LOSS: 5 PATHOLOGY: other (Cervical conization) COMPLICATIONS: None Patient was transported to: same day Patient's condition: stable Indications: Cervical dysplasia, AAMIR-2 Findings: Visually normal-appearing cervix with removal of the transformation zone in a LEEP procedure Procedure Description: After full informed consent was obtained, patient taken the operating suite with an IV running. She is placed in the dorsal supine position and general anesthesia administered. She was then placed in the modified dorsolithotomy position in yellowfin stirrups with pneumatic compression stockings for DVT prophylaxis. No antibiotic prophylaxis was warranted. A timeout was held. Vaginal preparation was performed. Speculum was inserted into the vaginal vault and the cervical os identified. With a loop electrode at 60/60, blend 1 loop electrode was used to create a cervical conization. The specimen was removed and sent to pathology. The base of the excisional biopsy was cauterized with electrocautery and Monsel's placed. The speculum was removed. The patient was returned to the dorsal supine position and awoke from anesthesia without difficulty. She was taken the same-day surgical area in stable condition Complications: None apparent EBL: 5 mL Fluids: Crystalloid per anesthesia Pathology: Cervical conization
[2024-09-21 08:59] VITALS: BP 117/76; PULSE 82; RESP 17; TEMP 37; O2SAT 98
[2024-09-21] MEDS: oxyCODONE 5 mg/Acetaminophen 325 mg TAB 1 TAB PO (09:50)
--- NOTE | 2024-09-21 09:58 | W.ANESPOSTOP ---
Postoperative Evaluation Date, Time and Location Date Performed: 09/21/24 Time Performed: 08:10 Patient Location: Day Surgery Unit Vital Signs Most Recent Imported Vital Signs: Most Recent Vital Signs Temp Pulse Resp BP Pulse Ox 37 C 82 17 117/76 98 09/21/24 08:59 09/21/24 08:59 09/21/24 08:59 09/21/24 08:59 09/21/24 08:59 Pain Score Most Recent Pain Score: Most Recent Pain Score Pain Level 4 09/21/24 08:59 Assessment Mental Status: Awake (Alert & Oriented to Patient Baseline) Airway and Respiratory Function: Patent airway with normal (patient baseline) respiratory exam Cardiovascular Function: Hemodynamically Stable Hydration Status: Adequately Hydrated Nausea & Vomiting: No Nausea or Vomiting Pain: Pain is tolerable per patient Peripheral Nerve Block: Patient did not receive a nerve block
[2024-09-21 10:10] VITALS: BP 117/76; PULSE 82; RESP 16; TEMP 37; O2SAT 98
== END 2024-09-21 10:15 | disposition home or self-care (01) ==
PROVIDERS: PCP Family Medicine; Visit Provider Obstetrics & Gynecology
PROC: 0UBC7ZZ Excision of Cervix, Via Natural or Artificial Opening (ICD-10-PCS; CPT 57522; principal; 2024-09-21 07:30)
DX: N87.1 Moderate cervical dysplasia (principal); D75.1 Secondary polycythemia; F12.20 Cannabis dependence, uncomplicated
CPT/HCPCS: 57522; 81025; 88307; J1100; J1885; J2405; J2704; J3010

== ENCOUNTER 2024-10-19 09:22 | Emergency (ER) | payer MEDICAID, SELFPAY ==
[2024-10-19] VITALS (10 sets, daily range): BP systolic 126–156; BP diastolic 76–99; PULSE 84–98; RESP 12–23; O2SAT 97–99
--- NOTE | 2024-10-19 09:15 | RT.EKG_ITS ---
APPROVED REPORT Exam: Resting ECG Reason for Exam: Chest Pain Patient Location: E HR:95 bpm ECG Measurements Heart Rate 95 AXIS MI 137 P 43 QRSd 76 QRS 61 QT 337 T 56 QTc 424 Conclusion Sinus rhythm, rate 95 No interval abnormalities No STEMI
[2024-10-19 09:55] LABS: Abs Immature Grans 0.04 10^3/uL (0.0-0.06); Absolute Basophil Count 0.05 10^3/uL (0.0-0.2); Absolute Eosinophil Count 0.05 10^3/uL (0.0-0.7); Absolute Lymphocyte Count 1.37 10^3/uL (1.2-3.4); Absolute Monocyte Count 0.79 10^3/uL (0.1-0.8); Absolute Neutrophil Count 7.65 10^3/uL (1.2-6.7); Basophils % 0.5 %; Eosinophils % 0.5 %; HCT 48.6 % (36.0-46.0); HGB 16.3 g/dL (11.2-15.7); Immature Grans % 0.4 %; Lymphocytes % 13.8 %; MCH 30.5 pg (27.0-33.0); MCHC 33.5 % (32.0-36.0); MCV 91 fL (80-95); MPV 8.7 fL (8.0-11.0); Monocytes % 7.9 %; Neutrophils % 76.9 %; Platelet Count 285 10^3/uL (130-400); RBC 5.35 10^6/uL (3.93-5.22); RDW 12.3 % (11.7-14.6); WBC 9.95 10^3/uL (4.4-10.8)
[2024-10-19] MEDS: fentaNYL 100 MCG/2 ML VIAL 50 MCG IVP (10:07)
[2024-10-19 10:18] LABS: Bilirubin Negative (Negative); Blood Negative (Negative); Clarity Clear (Clear); Glucose Negative (Negative); Ketones Negative (Negative); Leukocyte Esterase Negative (Negative); Nitrite Negative (Negative); Specific Gravity <= 1.005 (1.005-1.025); Urobilinogen 0.2 mg/dL (Up to 0.2)
[2024-10-19 10:19] LABS: ALT 21 U/L (14-59); AST 12 U/L (15-37); Albumin 4.3 g/dL (3.4-5.0); Alkaline Phosphatase 53 U/L (46-116); Anion Gap 9.7 mmol/L (3-11); BUN 9 mg/dL (7-18); CO2 25.3 mmol/L (21.0-32.0); CREATININE 0.7 mg/dL (0.55-1.02); Calcium 9.1 mg/dL (8.5-10.1); Chloride 104 mmol/L (98-107); Glucose 95 mg/dL (74-106); Lipase 28 U/L (16-77); Potassium 4.1 mmol/L (3.5-5.1); Sodium 139 mmol/L (136-145); Total Protein 7.6 g/dL (6.4-8.2)
[2024-10-19 10:25] LABS: Troponin I < 4 ng/L (<or=51)
[2024-10-19 10:35] LABS: D-Dimer 190 ng/mlFEU (<500)
--- NOTE | 2024-10-19 11:13 | DI.RAD_ITS ---
Exam(s) XR CHEST 2V PA LATERAL EXAM: XR CHEST 2V PA LATERAL CLINICAL HISTORY: left sided chest pain. TECHNIQUE: 2D digital imaging was performed. COMPARISON: CR CHEST 2 VIEWS PA,LAT from 10/17/2016 FINDINGS: 2 views: Heart size is normal. The mediastinum is not widened. Lungs are clear. No infiltrates nor pleural effusions. IMPRESSION: No acute pulmonary findings.No significant change compared to 2016 DATA REPOSITORY: RADIATION DOSE DELIVERED:
[2024-10-19] MEDS: Ketorolac 15 MG/ML VIAL 7.5 MG IVP (11:43)
--- NOTE | 2024-10-19 11:51 | W.ED.GENAD ---
Discharge Plan Disposition Patient Disposition: Home Condition: Stable Discharge Details Clinical Impression: Acute costochondritis Primary Care Provider: Isreal Bailey ED Provider: Roseanna Wong Home Meds and New Rx's Prescriptions: New prednisone 20 mg tablet 40 mg PO ONCE Qty: 10 0RF Continued oxycodone 5 mg tablet 5 mg PO Q12H MDD 10mg PRN (Reason: pain) Qty: 56 0RF lorazepam 0.5 mg tablet 0.5 mg PO BID Qty: 56 0RF cyclobenzaprine 10 mg tablet 10 mg PO DAILY PRN (Reason: muscle spasm) Qty: 30 3RF fluoxetine 20 mg capsule 20 mg PO DAILY Qty: 90 3RF naloxone [Narcan] 4 mg/actuation spray,non-aerosol 4 mg intranasal Q2M PRN (Reason: opioid overdose) Qty: 2 0RF Rx Instructions: spray 1 dose into ONE nostril; alternate nostrils w each dose until help arrives ibuprofen 800 mg tablet 800 mg PO Q8H PRNQty: 30 1RF Discharge Instructions Instructions: Costochondritis Additional Instructions: Take the prednisone as prescribed for the next 5 days, continue to take deep breaths Take Tylenol 650 every 6 hours for breakthrough pain Recheck in 3 to 5 days for persistent or worsening symptoms Please return earlier should you have new or worsening complaints Follow-up with hematology regarding her blood work Stand Alone Forms: Work Release Referrals: Isreal Bailey DO [Primary Care Provider] - 2 days Discharge Data Discharge Date/Time-TO BE ENTERED AT DEPARTURE: 10/19/24 11:55 HPI General Date/Time Provider Initiated Documentation: 10/19/24 09:26. HPI Narrative: 44-year-old female presents with acute left-sided chest pain for the past 3 days. Denies history of similar symptoms in the past or trauma. Status post colposcopy for which she did have anesthesia for approximately a month ago. Denies any calf pain or swelling or history of coagulopathy in the past. She does have a diagnosis of polycythemia in her chart however she has not been officially diagnosed with this and has an appointment with hematology. She denies any chance of , fever or chills. She denies any upper respiratory symptoms. She smokes tobacco on a daily basis. She denies history of cancer. She states her symptoms are worse with movement, breathing, coughing. Denies any hemoptysis. Denies any shortness of breath or nausea. Denies any history of early coronary artery disease in family members. Related Data Home Medications ?Medication ?Instructions ?Recorded ?Confirmed cyclobenzaprine 10 mg tablet 10 mg PO DAILY PRN muscle spasm 09/06/24 10/19/24 #30 tabs fluoxetine 20 mg capsule 20 mg PO DAILY #90 caps 09/06/24 10/19/24 naloxone 4 mg/actuation nasal 4 mg intranasal Q2M PRN opioid 09/06/24 10/19/24 spray (Narcan) overdose #2 ea ibuprofen 800 mg tablet 800 mg PO Q8H PRN #30 tabs 09/21/24 10/19/24 lorazepam 0.5 mg tablet 0.5 mg PO BID anxiety #56 tabs 10/11/24 10/19/24 oxycodone 5 mg tablet 5 mg PO Q12H PRN pain #56 tabs 10/11/24 10/19/24 prednisone 20 mg tablet 40 mg (2 x 20 mg) PO ONCE #10 tabs 10/19/24 Previous Rx's ?Medication ?Instructions ?Recorded cyclobenzaprine 10 mg tablet 10 mg PO DAILY PRN muscle spasm 09/06/24 #30 tabs fluoxetine 20 mg capsule 20 mg PO DAILY #90 caps 09/06/24 naloxone 4 mg/actuation nasal 4 mg intranasal Q2M PRN opioid 09/06/24 spray (Narcan) overdose #2 ea ibuprofen 800 mg tablet 800 mg PO Q8H PRN #30 tabs 09/21/24 lorazepam 0.5 mg tablet 0.5 mg PO BID anxiety #56 tabs 10/11/24 oxycodone 5 mg tablet 5 mg PO Q12H PRN pain #56 tabs 10/11/24 prednisone 20 mg tablet 40 mg (2 x 20 mg) PO ONCE #10 tabs 10/19/24 Allergies Allergy/AdvReac Type Severity Reaction Status Date / Time Penicillins Allergy Severe Anaphylaxis Verified 10/19/24 09:59 Sulfa (Sulfonamide Allergy Intermediate Rash Verified 10/19/24 09:59 Antibiotics) General Stated Complaint: Chest Pain BRONSON: 3 Exam Narrative Exam Narrative: 44-year-old female in no acute distress, reproducible chest wall tenderness over the left sixth and seventh ribs, lungs are clear to auscultation, cardiac rate rhythm regular, no abdominal tenderness, no calf swelling or tenderness, distal pulses intact Course Vital Signs Vital signs: Vital Signs Pulse 96 H 10/19/24 09:28 Respiratory Rate 18 10/19/24 09:28 Blood Pressure 156/99 H 10/19/24 09:28 Pulse Oximetry 99 10/19/24 09:28 Pulse 84 10/19/24 11:42 Pulse 98 H 10/19/24 10:46 Respiratory Rate 13 10/19/24 10:46 Respiratory Effort Normal 10/19/24 09:55 Respiratory Depth Normal 10/19/24 09:55 Respiratory Pattern Normal 10/19/24 09:55 Blood Pressure 126/76 10/19/24 11:42 Blood Pressure Mean 91 10/19/24 11:42 Pulse Oximetry 97 10/19/24 11:42 Oxygen Delivery Method Room Air 10/19/24 09:28 Oxygen Flow Rate 0 10/19/24 09:28 Pain Level 6 10/19/24 11:43 Lab/Test Results Lab/Test Results: Laboratory Tests Range/Units 10/19/24 10/19/24 10/19/24 09:47 10:05 10:47 WBC (4.4-10.8) 10^3/uL 9.95 RBC (3.93-5.22) 10^6/uL 5.35 H Hgb (11.2-15.7) g/dL 16.3 H Hct (36.0-46.0) % 48.6 H MCV (80-95) fL 91 MCH (27.0-33.0) pg 30.5 MCHC (32.0-36.0) % 33.5 RDW (11.7-14.6) % 12.3 Plt Count (130-400) 10^3/uL 285 MPV (8.0-11.0) fL 8.7 Immature Gran % % 0.4 Neutrophils % % 76.9 Lymphocytes % % 13.8 Monocytes % % 7.9 Eosinophils % % 0.5 Basophils % % 0.5 Nucleated RBC % (0.0-0.3) % 0.0 Absolute Neutrophils (1.2-6.7) 10^3/uL 7.65 H Absolute Lymphocytes (1.2-3.4) 10^3/uL 1.37 Absolute Monocytes (0.1-0.8) 10^3/uL 0.79 Absolute Eosinophils (0.0-0.7) 10^3/uL 0.05 Absolute Basophils (0.0-0.2) 10^3/uL 0.05 D-Dimer (<500) ng/mlFEU 190 Sodium (136-145) mmol/L 139 Potassium (3.5-5.1) mmol/L 4.1 Chloride (98-107) mmol/L 104 Carbon Dioxide (21.0-32.0) mmol/L 25.3 Anion Gap (3-11) mmol/L 9.7 BUN (7-18) mg/dL 9 Creatinine (0.55-1.02) mg/dL 0.7 Est GFR (CKD-EPI 2020) (mL/min/1.73m2) 109.30 Glucose (74-106) mg/dL 95 Calcium (8.5-10.1) mg/dL 9.1 Total Bilirubin (0.2-1.0) mg/dL 0.40 AST (15-37) U/L 12 L ALT (14-59) U/L 21 Alkaline Phosphatase (46-116) U/L 53 Troponin I (<or=51) ng/L < 4 Cancelled Total Protein (6.4-8.2) g/dL 7.6 Albumin (3.4-5.0) g/dL 4.3 Lipase (16-77) U/L 28 Urine Color (Yellow) Yellow Urine Clarity (Clear) Clear Urine pH (5-8) 6.0 Ur Specific [place] (1.005-1.025) <= 1.005 Urine Protein (Neg-Trace) mg/dL Negative Urine Ketones (Negative) mg/dL Negative Urine Blood (Negative) Negative Urine Nitrite (Negative) Negative Urine Bilirubin (Negative) Negative Urine Urobilinogen (Up to 0.2) mg/dL 0.2 Ur Leukocyte Esterase (Negative) Negative Urine Glucose (Negative) mg/dL Negative Range/Units 10/19/24 12:47 WBC (4.4-10.8) 10^3/uL RBC (3.93-5.22) 10^6/uL Hgb (11.2-15.7) g/dL Hct (36.0-46.0) % MCV (80-95) fL MCH (27.0-33.0) pg MCHC (32.0-36.0) % RDW (11.7-14.6) % Plt Count (130-400) 10^3/uL MPV (8.0-11.0) fL Immature Gran % % Neutrophils % % Lymphocytes % % Monocytes % % Eosinophils % % Basophils % % Nucleated RBC % (0.0-0.3) % Absolute Neutrophils (1.2-6.7) 10^3/uL Absolute Lymphocytes (1.2-3.4) 10^3/uL Absolute Monocytes (0.1-0.8) 10^3/uL Absolute Eosinophils (0.0-0.7) 10^3/uL Absolute Basophils (0.0-0.2) 10^3/uL D-Dimer (<500) ng/mlFEU Sodium (136-145) mmol/L Potassium (3.5-5.1) mmol/L Chloride (98-107) mmol/L Carbon Dioxide (21.0-32.0) mmol/L Anion Gap (3-11) mmol/L BUN (7-18) mg/dL Creatinine (0.55-1.02) mg/dL Est GFR (CKD-EPI 2020) (mL/min/1.73m2) Glucose (74-106) mg/dL Calcium (8.5-10.1) mg/dL Total Bilirubin (0.2-1.0) mg/dL AST (15-37) U/L ALT (14-59) U/L Alkaline Phosphatase (46-116) U/L Troponin I (<or=51) ng/L Cancelled Total Protein (6.4-8.2) g/dL Albumin (3.4-5.0) g/dL Lipase (16-77) U/L Urine Color (Yellow) Urine Clarity (Clear) Urine pH (5-8) Ur Specific [place] (1.005-1.025) Urine Protein (Neg-Trace) mg/dL Urine Ketones (Negative) mg/dL Urine Blood (Negative) Urine Nitrite (Negative) Urine Bilirubin (Negative) Urine Urobilinogen (Up to 0.2) mg/dL Ur Leukocyte Esterase (Negative) Urine Glucose (Negative) mg/dL Medical Decision Making 44-year-old female presenting in no acute distress with reproducible left chest wall tenderness, improved after Toradol. D-dimer troponin negative, EKG within normal limits, symptoms present for 3 days, single troponin reasonable. With negative D-dimer, no hypoxia or tachypnea I think is a reasonable screening study and we will hold on CT at this time. She is given low threshold to return with new or worsening complaints. Given her level of pain I did order prednisone for treatment of likely costochondritis at this time. Patient is encouraged to follow-up with her primary care physician in the outpatient setting and to return earlier should she have new, worsening, or persistent complaints. Quality:SDOH Health Related Social Needs: No Data to Display PFSH All Active Problems (Updated 10/19/24 @ 11:33 by RONALDO Marks) Acute costochondritis (Acute) Status post LEEP (loop electrosurgical excision procedure) of cervix (Acute) Chronic generalized abdominal pain (Acute) Polycythemia (Acute) AAMIR II (cervical intraepithelial neoplasia II) (Acute) LEEP procedure 08/2024?AAMIR-2, negative margins. Recommend Pap smear every 6 months x 24 months. Pap 04/2025- Cannabis dependence with current use (Acute) Low grade squamous intraepithelial lesion (LGSIL) on cervical Pap smear (Acute) Pap 06/27/2024?L DEVIN, positive high risk HPV type 16 Colpo 07/28/2024-ECC negative. Biopsy AAMIR-2-LEEP procedure to be scheduled Internal hemorrhoid (Acute) Chronic diarrhea (Acute) Rectal pain (Acute) Personal history of nicotine dependence (Acute) 09/2021- 1 ppd Generalized anxiety disorder (Chronic) 09/2021-Uses lorazepam as needed for panic attack-drug contract through [facility], meds queried, goal is 20 tabs per month IBS (irritable bowel syndrome) (Chronic) Lower abdominal pain (Chronic) abdominal cramping and diarrhea. Extensive work-up at [facility]. No etiology found Medical History (Updated 10/19/24 @ 11:33 by RONALDO Marks) Rectal polyp Villous adenoma of rectum (2018) Bilateral ovarian cysts Cholelithiasis Abnormal mammogram of left breast Abnormal mammogram left breast 02/2024. Recommend follow-up mammogram left breast 09/22 Breast tenderness in female History of gastroscopy Kidney stones Surgical History (Updated 09/21/24 @ 08:24 by Tania Mcclendon DO) History of foot surgery for plantar fascititis H/O LEEP H/O breast biopsy History of rhinoplasty Status post tonsillectomy Family History (Updated 08/05/24 @ 12:28 by Kera Ha) Maternal Grandfather Colon cancer Paternal Grandfather Colon cancer Mother Alcohol use disorder Hypertension Father Stroke Amnesia, global, transient Hypertension Social History (Updated 08/05/24 @ 12:26 by Kera Ha) Smoking/Tobacco Use Status: Current every day Tobacco Type: cigarettes Years smoked: 10 Tobacco: How many years used: 10 Quit status: considering quitting Counseling given: provider counseling Smoking risk assessment performed?: Yes Alcohol Intake: never Drug use: Daily Substance use type: marijuana Adopted: No Caregiver/Support person: No Foster care: No Household members: family Housing: house Number of Children: 3 Communication Needs: None Education Level: master's degree Do you need help understanding health information?: Never current occupation: [employer], PhD program for history Pets and animals: Yes (4 Dogs, 2 Cats, 3 Birds) Pets and animals: cat(s), dog(s) and bird(s) Sexually active: Yes Do you think of yourself as: straight/heterosexual Current gender identity: female What is your relationship status?: How often do you talk on the phone with friends or family?: decline to answer How often do you get together with friends or relatives?: decline to answer How often do you attend latter day or sikh services?: decline to answer Do you belong to any clubs or organized social groups?: decline to answer Panel score (0-1 are the most socially isolated patients): 1 What type of physical activity do you participate in: none Kathia/Rastafari: Other Seatbelt use: always Helmet use: Yes Helmet use: always Drive intox or ride w/intox 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
== END 2024-10-19 11:55 | disposition home or self-care (01) ==
PROVIDERS: Emergency Provider Physician Assistant; PCP Family Medicine
DX: M94.0 Chondrocostal junction syndrome [Tietze] (principal); F17.210 Nicotine dependence, cigarettes, uncomplicated
CPT/HCPCS: 80053; 83690; 93005; 96374; 96375; 99285; 71046; 81003; 84484; 85025; 85379; 93010; 99284; J1885; J3010

== ENCOUNTER 2024-10-21 12:02 | Outpatient (CLI) | payer MEDICAID, SELFPAY ==
--- NOTE | 2024-10-21 12:00 | RT.EKG_ITS ---
APPROVED REPORT Exam: Resting ECG Reason for Exam: Chest pain/pressure Patient Location: O HR:87 bpm ECG Measurements Heart Rate 87 AXIS [place] 150 P 37 QRSd 84 QRS 39 QT 368 T 40 QTc 443 Conclusion Sinus rhythm...normal P axis, V-rate 50- 99 Normal Electrocardiogram
== END 2024-10-21 12:03 | disposition home or self-care (01) ==
LOC: DI.KIM 12:04
PROVIDERS: PCP Family Medicine; Visit Provider Family Medicine
DX: I20.89 Other forms of angina pectoris (principal)
CPT/HCPCS: 93010